=== PATIENT | female | born 1975 | race Caucasian/White ===

== ENCOUNTER 2018-01-22 21:02 | Emergency (ER) | payer MEDICAID ==
[~2018-01-22] VITALS: Ht 162.6 cm; Wt 72.0 kg
[~2018-01-22 21:02] MED LIST: ATOR20TA PO; LEVEMIR SUBCUT; LOSA100T3 PO; NOVOLOG SUBCUT
[2018-01-22] MEDS ORDERED: MORPHINE SULFATE 4 MG/ML CPJ (NOT FOR IM USE) IV STA (22:58)
[2018-01-22] MEDS ORDERED: SODIUM CHLORIDE 0.9% 1,000 ML IV ONE (22:58)
[2018-01-22] MEDS ORDERED: ONDANSETRON HCL 4MG/2ML VIAL IV STA (22:58)
[2018-01-22 23:53] LABS: BASOPHILS % 0.5 % (0.0-2.0); EOSINOPHILS % 2.6 % (0.0-5.0); HEMOGLOBIN. 11.5 g/dL (12.0-16.0); LYMPHOCYTES % 26.5 % (20.0-50.0); MEAN CORPUSCULAR HEMOGLOBIN 26.7 pg (28.0-32.0); MEAN PLATELET VOLUME 7.7 fl (7.4-10.4); MONOCYTES % 8.4 % (2.0-8.0); PLATELET 344 x1000/uL (130-400); RED BLOOD CELL COUNT 4.32 mill/uL (4.2-5.4); RED CELL DISTRIBUTION WIDTH 14.1 % (11.6-14.6)
[2018-01-22 23:53] LABS: CLARITY URINE CLEAR (CLEAR); COLOR URINE YELLOW (YELLOW); KETONES URINE NEGATIVE (NEGATIVE); LEUKOCYTE ESTERASE URINE NEGATIVE (NEGATIVE); NITRITE URINE NEGATIVE (NEGATIVE); OCCULT BLOOD URINE TRACE (NEGATIVE); PH URINE 6.5 (4.5-8.0); PROTEIN URINE 3+ (NEGATIVE); SPECIFIC GRAVITY URINE 1.014 (1.005-1.030); UROBILINOGEN URINE 0.2 E.U./dL (0.2-1.0)
[2018-01-22 23:55] LABS: CHLORIDE 104 mEq/L (98-107)
[2018-01-23] LABS: HCG SCREEN NEGATIVE
[2018-01-23 00:27] LABS: PROTHROMBIN TIME 10.1 sec (9.1-11.1)
[2018-01-23 02:04] VITALS: BP 157/81
== END 2018-01-23 02:08 | disposition home or self-care (01) ==
LOC: ER 22:40
DX: R10.30 Lower abdominal pain, unspecified (principal); R11.0 Nausea; I10 Essential (primary) hypertension; E11.9 Type 2 diabetes mellitus without complications; Z90.49 Acquired absence of other specified parts of digestive tract; Z98.890 Other specified postprocedural states; Z98.51 Tubal ligation status; Z79.899 Other long term (current) drug therapy
CPT/HCPCS: 36415; 74176; 80053; 81003; 83690; 84484; 84703; 85025; 85610; 96374; 96375; 99285; J2270; J2405; J7030

== ENCOUNTER 2018-04-13 22:06 | Inpatient (IN) | payer MEDICAID ==
[~2018-04-13] VITALS: Ht 162.6 cm; Wt 68.0 kg
[2018-04-14] MEDS ORDERED: SODIUM CHLORIDE 0.9% 1000ML BAG (SEPSIS BOLUS) IV ONE (00:15)
[2018-04-14] MEDS ORDERED: VANCOMYCIN 1 G PREMIX 200 ML IV ONE (00:15)
[2018-04-14] MEDS ORDERED: PIPERACILLIN/TAZ 3.375G PREMIX 50 ML IV ONE (00:15)
[2018-04-14] MEDS ORDERED: HYDROCODONE/ACETAMINOPHEN 5/325MG TABLET PO ONE (01:00)
[2018-04-14 01:09] LABS: BASOPHILS % 0.3 % (0.0-2.0); EOSINOPHILS % 1.6 % (0.0-5.0); HEMATOCRIT. 31.7 % (36.0-48.0); HEMOGLOBIN. 10.4 g/dL (12.0-16.0); LYMPHOCYTES % 18.5 % (20.0-50.0); MEAN CORPUSCULAR HEMOGLOBIN 27.1 pg (28.0-32.0); MEAN PLATELET VOLUME 7.4 fl (7.4-10.4); NEUTROPHILS % 71.6 % (40.0-76.0); PLATELET 360 x1000/uL (130-400); RED BLOOD CELL COUNT 3.86 mill/uL (4.2-5.4); RED CELL DISTRIBUTION WIDTH 13.3 % (11.6-14.6)
[2018-04-14 01:17] LABS: CHLORIDE 101 mEq/L (98-107)
[2018-04-14] MEDS ORDERED: INSULIN GLARGINE UD 100 UNITS/ML SYR SUBCUT ONE (02:45)
[2018-04-14] MEDS ORDERED: INSU3INS2 SQ (04:44)
[2018-04-14] MEDS ORDERED: INSLIS SUBCUT (04:44)
[2018-04-14] MEDS ORDERED: METF-416 PO (04:44)
[2018-04-14 04:58] VITALS: BP 143/84
[2018-04-14 05:36] VITALS: BP 143/89
[2018-04-14 08:00] VITALS: BP 139/77
[2018-04-14] MEDS ORDERED: DEXTROSE 50% WATER 50ML SYRINGE IV PRN (08:45)
[2018-04-14] MEDS ORDERED: INFLUENZA VIRUS VACCINE(AFLURIA) 0.5ML SYR IM ONE (10:00)
[2018-04-14] MEDS: VANCOMYCIN 750 MG PREMIX 150 ML IV SCH ×2 (10:55→23:10)
[2018-04-14 12:00] VITALS: BP 141/79
[2018-04-14] MEDS: BLOOD SUGAR DIAGNOSTIC STRIP TEST SCH ×3 (12:30→23:00)
[2018-04-14] MEDS: INSULIN LISPRO 100 UNITS/ML SUBCUT SCH ×3 (13:37→23:29)
[2018-04-14 16:00] VITALS: BP 135/76
[2018-04-14 20:00] VITALS: BP 130/77
[2018-04-15] VITALS: BP 131/70
[2018-04-15 04:00] VITALS: BP 129/74
[2018-04-15 07:10] LABS: BASOPHILS % 0.4 % (0.0-2.0); EOSINOPHILS % 2.1 % (0.0-5.0); HEMOGLOBIN. 10.6 g/dL (12.0-16.0); LYMPHOCYTES % 19.1 % (20.0-50.0); MEAN CORPUSCULAR HEMOGLOBIN 26.7 pg (28.0-32.0); MEAN CORPUSCULAR VOLUME 80.4 fL (81.0-99.0); MEAN PLATELET VOLUME 7.4 fl (7.4-10.4); MONOCYTES % 7.6 % (2.0-8.0); NEUTROPHILS % 70.8 % (40.0-76.0); PLATELET 359 x1000/uL (130-400); RED BLOOD CELL COUNT 3.98 mill/uL (4.2-5.4); RED CELL DISTRIBUTION WIDTH 13.4 % (11.6-14.6)
[2018-04-15] MEDS: BLOOD SUGAR DIAGNOSTIC STRIP TEST SCH ×4 (07:38→21:16)
[2018-04-15 08:00] VITALS: BP 132/72
[2018-04-15 08:05] LABS: CHLORIDE 105 mEq/L (98-107)
[2018-04-15] MEDS: INSULIN LISPRO 100 UNITS/ML SUBCUT SCH ×6 (08:06→21:00)
[2018-04-15] MEDS: VANCOMYCIN 750 MG PREMIX 150 ML IV SCH ×3 (09:28→21:23)
[2018-04-15] MEDS ORDERED: LOSARTAN POTASSIUM 100 MG PO SCH (09:45)
[2018-04-15] MEDS: ENOXAPARIN 40MG/0.4ML SYR SUBCUT SCH (11:03)
[2018-04-15] MEDS: LOSARTAN POTASSIUM 100 MG TABLET PO SCH (11:03)
[2018-04-15 12:00] VITALS: BP 138/77
[2018-04-15] MEDS ORDERED: INSULIN LISPRO 20 UNIT SUBCUT SCH (12:20)
[2018-04-15 16:00] VITALS: BP 138/76
[2018-04-15 20:00] VITALS: BP 122/68
[2018-04-15] MEDS: INSULIN GLARGINE UD 100 UNITS/ML SYR SUBCUT SCH (21:31)
[2018-04-15] MEDS: TRAMADOL 50MG TABLET PO PRN (22:16)
[2018-04-16] VITALS: BP 124/77
[2018-04-16 04:00] VITALS: BP 113/74
[2018-04-16] MEDS: BLOOD SUGAR DIAGNOSTIC STRIP TEST SCH ×4 (07:05→21:48)
[2018-04-16 07:46] LABS: BASOPHILS % 0.3 % (0.0-2.0); EOSINOPHILS % 2.1 % (0.0-5.0); HEMATOCRIT. 33.1 % (36.0-48.0); HEMOGLOBIN. 10.9 g/dL (12.0-16.0); LYMPHOCYTES % 19.4 % (20.0-50.0); MEAN CORPUSCULAR HEMOGLOBIN 26.7 pg (28.0-32.0); MEAN CORPUSCULAR VOLUME 80.9 fL (81.0-99.0); MEAN PLATELET VOLUME 7.4 fl (7.4-10.4); MONOCYTES % 7.1 % (2.0-8.0); NEUTROPHILS % 71.1 % (40.0-76.0); PLATELET 361 x1000/uL (130-400); RED BLOOD CELL COUNT 4.09 mill/uL (4.2-5.4); RED CELL DISTRIBUTION WIDTH 13.3 % (11.6-14.6)
[2018-04-16 07:57] LABS: CHLORIDE 106 mEq/L (98-107)
[2018-04-16 08:00] VITALS: BP 139/83
[2018-04-16] MEDS: LOSARTAN POTASSIUM 100 MG TABLET PO SCH (08:41)
[2018-04-16] MEDS: ENOXAPARIN 40MG/0.4ML SYR SUBCUT SCH (08:41)
[2018-04-16] MEDS: INSULIN LISPRO 100 UNITS/ML SUBCUT SCH ×7 (08:46→21:00)
[2018-04-16] MEDS: VANCOMYCIN 1250MG in DEXTROSE 5% WATER 250ML IV SCH ×2 (10:37→21:48)
[2018-04-16 12:00] VITALS: BP 116/73
[2018-04-16 16:04] VITALS: BP 109/64
[2018-04-16 20:00] VITALS: BP 131/76
[2018-04-16] MEDS: INSULIN GLARGINE UD 100 UNITS/ML SYR SUBCUT SCH (22:02)
[2018-04-17] VITALS: BP 126/69
[2018-04-17 04:00] VITALS: BP 119/69
[2018-04-17] MEDS: BLOOD SUGAR DIAGNOSTIC STRIP TEST SCH ×4 (07:20→21:48)
[2018-04-17 08:00] VITALS: BP 120/72
[2018-04-17] MEDS: LOSARTAN POTASSIUM 100 MG TABLET PO SCH (08:45)
[2018-04-17] MEDS: ENOXAPARIN 40MG/0.4ML SYR SUBCUT SCH (08:45)
[2018-04-17] MEDS: INSULIN LISPRO 100 UNITS/ML SUBCUT SCH ×7 (08:48→21:00)
[2018-04-17] MEDS: VANCOMYCIN 1250MG in DEXTROSE 5% WATER 250ML IV SCH (09:46)
[2018-04-17 12:01] VITALS: BP 139/76
[2018-04-17 16:00] VITALS: BP 132/75
[2018-04-17 20:00] VITALS: BP 150/85
[2018-04-17] MEDS ORDERED: CEFTRIAXONE 2 G in DEXTROSE 5% WATER 50 ML IV SCH (21:00)
[2018-04-17] MEDS: TRAMADOL 50MG TABLET PO PRN (21:37)
[2018-04-17] MEDS: INSULIN GLARGINE UD 100 UNITS/ML SYR SUBCUT SCH (22:04)
[2018-04-18] VITALS: BP 136/76
[2018-04-18 04:00] VITALS: BP_SYST 128; BP_SYST 142; BP_DIAS 76; BP_DIAS 77
[2018-04-18] MEDS: BLOOD SUGAR DIAGNOSTIC STRIP TEST SCH ×3 (07:46→17:38)
[2018-04-18 08:00] VITALS: BP 126/75
[2018-04-18] MEDS: INSULIN LISPRO 100 UNITS/ML SUBCUT SCH ×6 (08:37→18:19)
[2018-04-18] MEDS: LOSARTAN POTASSIUM 100 MG TABLET PO SCH (08:38)
[2018-04-18] MEDS: ENOXAPARIN 40MG/0.4ML SYR SUBCUT SCH (08:38)
[2018-04-18 12:00] VITALS: BP 110/76
[2018-04-18 16:00] VITALS: BP 134/82
[2018-04-18 18:40] VITALS: BP 125/86
== END 2018-04-18 20:30 | disposition home health service (06) | DRG 710 ==
LOC: ER 22:06 → 6EST 04-14 00:23 → EDBEDREQ 04-14 00:26 → EDBEDREQTM 04-14 00:26 → EDBEDREQSVC 04-14 00:26 → ENRESERV 04-14 02:07
PROVIDERS: ADMIT Internal Medicine; ATTEND Internal Medicine
PROC: 02HV33Z Insertion of Infusion Device into Superior Vena Cava, Percutaneous Approach (ICD-10-PCS; principal; 2018-04-17)
PROC: 0QDR0ZZ Extraction of Left Toe Phalanx, Open Approach (ICD-10-PCS; 2018-04-17)
PROC: B548ZZA Ultrasonography of Superior Vena Cava, Guidance (ICD-10-PCS; 2018-04-17)
PROC: B5181ZA Fluoroscopy of Superior Vena Cava using Low Osmolar Contrast, Guidance (ICD-10-PCS; 2018-04-17)
PROC: 0JBR0ZZ Excision of Left Foot Subcutaneous Tissue and Fascia, Open Approach (ICD-10-PCS; 2018-04-17)
DX: A41.9 Sepsis, unspecified organism (principal); E10.51 Type 1 diabetes mellitus with diabetic peripheral angiopathy without gangrene; E10.42 Type 1 diabetes mellitus with diabetic polyneuropathy; E44.0 Moderate protein-calorie malnutrition; E10.621 Type 1 diabetes mellitus with foot ulcer; E10.65 Type 1 diabetes mellitus with hyperglycemia; I10 Essential (primary) hypertension; E78.5 Hyperlipidemia, unspecified; L97.529 Non-pressure chronic ulcer of other part of left foot with unspecified severity; L02.612 Cutaneous abscess of left foot; E10.69 Type 1 diabetes mellitus with other specified complication; M86.8X7 Other osteomyelitis, ankle and foot; Z90.49 Acquired absence of other specified parts of digestive tract; Z98.891 History of uterine scar from previous surgery; Z98.51 Tubal ligation status; Z79.899 Other long term (current) drug therapy; Z79.82 Long term (current) use of aspirin; Z91.19 Patient's noncompliance with other medical treatment and regimen; Z68.25 Body mass index [BMI] 25.0-25.9, adult; Z79.84 Long term (current) use of oral hypoglycemic drugs; Z79.4 Long term (current) use of insulin
CPT/HCPCS: 36415; 36569; 71045; 73630; 73721; 76937; 77001; 80048; 80202; 82962; 83036; 83605; 85651; 86140; 87070; 87077; 90686; 96365; 96366; 96367; 97022; 97162; 99285; C1725; J0696; J1650; J1815; J2543; J3370; J7030; J7040; J7060

== ENCOUNTER 2018-07-20 08:20 | Emergency (ER) | payer MEDICAID ==
[~2018-07-20] VITALS: Ht 162.6 cm; Wt 68.5 kg
[~2018-07-20 08:20] MED LIST changes: -ATOR20TA PO; +INSLIS SUBCUT; -LEVEMIR SUBCUT; +METF-416 PO; -NOVOLOG SUBCUT
[2018-07-20] MEDS ORDERED: AMLO5TAB4 MT (08:37)
[2018-07-20] MEDS ORDERED: LYR25 MT (08:37)
[2018-07-20] MEDS ORDERED: ONDANSETRON HCL 4MG/2ML INJ IV ONE (13:45)
[2018-07-20] MEDS ORDERED: MORPHINE SULFATE 4 MG/ML CPJ (NOT FOR IM USE) IV ONE (13:45)
[2018-07-20 14:52] LABS: BASOPHILS % 0.3 % (0.0-2.0); EOSINOPHILS % 0.5 % (0.0-5.0); HEMATOCRIT. 35.2 % (36.0-48.0); HEMOGLOBIN. 11.7 g/dL (12.0-16.0); LYMPHOCYTES % 15.2 % (20.0-50.0); MEAN CORPUSCULAR HEMOGLOBIN 26.7 pg (28.0-32.0); MEAN CORPUSCULAR VOLUME 80.2 fL (81.0-99.0); MEAN PLATELET VOLUME 8.1 fl (7.4-10.4); MONOCYTES % 3.8 % (2.0-8.0); NEUTROPHILS % 80.2 % (40.0-76.0); PLATELET 376 x1000/uL (130-400); RED BLOOD CELL COUNT 4.38 mill/uL (4.2-5.4); RED CELL DISTRIBUTION WIDTH 13.9 % (11.6-14.6)
[2018-07-20 14:58] LABS: CHLORIDE 106 mEq/L (98-107)
[2018-07-20 15:04] LABS: HCG SCREEN NEGATIVE
[2018-07-20 18:33] LABS: CLARITY URINE CLOUDY (CLEAR); COLOR URINE YELLOW (YELLOW); KETONES URINE NEGATIVE (NEGATIVE); LEUKOCYTE ESTERASE URINE TRACE (NEGATIVE); NITRITE URINE NEGATIVE (NEGATIVE); OCCULT BLOOD URINE 3+ (NEGATIVE); PROTEIN URINE 3+ (NEGATIVE); SPECIFIC GRAVITY URINE 1.017 (1.005-1.030); UROBILINOGEN URINE 0.2 E.U./dL (0.2-1.0)
[2018-07-20 19:00] VITALS: BP 141/77
== END 2018-07-20 19:05 | disposition home or self-care (01) ==
LOC: ER 08:45
DX: R10.84 Generalized abdominal pain (principal); R19.7 Diarrhea, unspecified; E11.9 Type 2 diabetes mellitus without complications; I10 Essential (primary) hypertension; Z90.49 Acquired absence of other specified parts of digestive tract; Z98.890 Other specified postprocedural states; Z95.5 Presence of coronary angioplasty implant and graft; Z53.31 Laparoscopic surgical procedure converted to open procedure; Z79.4 Long term (current) use of insulin; Z79.899 Other long term (current) drug therapy
CPT/HCPCS: 36415; 74176; 80053; 81003; 81025; 83690; 84703; 85025; 96374; 96375; 99284; J2270; J2405

== ENCOUNTER 2018-08-28 05:50 | Inpatient (IN) | payer MEDICAID ==
[~2018-08-28] VITALS: Ht 162.6 cm; Wt 72.6 kg
[~2018-08-28 05:50] MED LIST changes: +AMLO5TAB4 MT; +LYR25 MT
[2018-08-28] MEDS ORDERED: IBUPROFEN 600MG TABLET PO ONE (08:30)
[2018-08-28 08:37] LABS: BASOPHILS % 0.4 % (0.0-2.0); EOSINOPHILS % 2.3 % (0.0-5.0); HEMATOCRIT. 32.9 % (36.0-48.0); HEMOGLOBIN. 11.2 g/dL (12.0-16.0); MEAN CORPUSCULAR HEMOGLOBIN 27.4 pg (28.0-32.0); MEAN CORPUSCULAR VOLUME 80.5 fL (81.0-99.0); MEAN PLATELET VOLUME 7.5 fl (7.4-10.4); MONOCYTES % 5.4 % (2.0-8.0); NEUTROPHILS % 69.9 % (40.0-76.0); PLATELET 343 x1000/uL (130-400); RED BLOOD CELL COUNT 4.08 mill/uL (4.2-5.4); RED CELL DISTRIBUTION WIDTH 13.4 % (11.6-14.6)
[2018-08-28 08:43] LABS: CHLORIDE 107 mEq/L (98-107)
[2018-08-28] MEDS ORDERED: AMPICILLIN SOD/SULBACTAM NA 1.5 G in SODIUM CHLORIDE 0.9% 50 ML IV SCH (09:00)
[2018-08-28 14:30] VITALS: BP 136/75
[2018-08-28] MEDS ORDERED: DEXTROSE 50% WATER 50ML SYRINGE IV PRN (17:15)
[2018-08-28] MEDS: BLOOD SUGAR DIAGNOSTIC STRIP TEST SCH ×2 (17:40→22:30)
[2018-08-28] MEDS ORDERED: LOSARTAN POTASSIUM 100 MG PO SCH (17:45)
[2018-08-28] MEDS ORDERED: MEDICATION NOT ON FORMULARY EA (Amlodipine Besylate (Norvasc) 1 TAB) MT SCH (17:45)
[2018-08-28] MEDS: INSULIN LISPRO 100 UNITS/ML SUBCUT SCH ×3 (17:50→22:00)
[2018-08-28] MEDS: LOSARTAN POTASSIUM 100 MG TABLET PO SCH (18:55)
[2018-08-28] MEDS: AMLODIPINE 5MG TABLET PO SCH (18:55)
[2018-08-28 20:00] VITALS: BP 142/74
[2018-08-28] MEDS ORDERED: VANCOMYCIN 1500MG in DEXTROSE 5% WATER 250ML IV NR (20:00)
[2018-08-28] MEDS ORDERED: ENOXAPARIN 40MG/0.4ML SYR SUBCUT ONE (20:15)
[2018-08-28] MEDS: CEFEPIME 1,000 MG in SODIUM CHLORIDE 0.9% 50 ML IV SCH (22:19)
[2018-08-28] MEDS: SODIUM CHLORIDE 0.9% 1,000 ML IV SCH (22:20)
[2018-08-28] MEDS: ENOXAPARIN 40MG/0.4ML SYR SUBCUT SCH (22:22)
[2018-08-29] VITALS: BP 112/67
[2018-08-29 04:00] VITALS: BP 115/68
[2018-08-29] MEDS: VANCOMYCIN 1 G PREMIX 200 ML IV SCH ×2 (06:12→17:49)
[2018-08-29] MEDS ORDERED: INSULIN LISPRO 20 UNIT SUBCUT SCH (07:20)
[2018-08-29] MEDS: BLOOD SUGAR DIAGNOSTIC STRIP TEST SCH ×4 (07:20→21:00)
[2018-08-29] MEDS: INSULIN LISPRO 100 UNITS/ML SUBCUT SCH ×7 (07:20→21:30)
[2018-08-29 08:00] VITALS: BP 132/78
[2018-08-29] MEDS: CEFEPIME 1,000 MG in SODIUM CHLORIDE 0.9% 50 ML IV SCH ×2 (08:00→21:29)
[2018-08-29] MEDS ORDERED: SODIUM BICARBONATE 4% (2.4MEQ) 5ML VIAL IV ONE (08:07)
[2018-08-29] MEDS ORDERED: LIDOCAINE HCL 1% 20ML VIAL (Pyxis) INJ ONE (08:07)
[2018-08-29] MEDS: LOSARTAN POTASSIUM 100 MG TABLET PO SCH (08:57)
[2018-08-29] MEDS: AMLODIPINE 5MG TABLET PO SCH (08:57)
[2018-08-29] MEDS: SODIUM CHLORIDE 0.9% 1,000 ML IV SCH ×2 (08:58→21:36)
[2018-08-29] MEDS ORDERED: CEFEPIME HCL 1000MG/VIAL INJ IM ONE (09:00)
[2018-08-29 12:00] VITALS: BP 142/80
[2018-08-29] MEDS: GABAPENTIN 300MG CAPSULE PO SCH ×2 (14:16→21:35)
[2018-08-29 16:00] VITALS: BP 152/85
[2018-08-29 20:00] VITALS: BP 150/92
[2018-08-29] MEDS: ENOXAPARIN 40MG/0.4ML SYR SUBCUT SCH (21:29)
[2018-08-30] VITALS: BP 126/69
[2018-08-30 04:00] VITALS: BP 108/64
[2018-08-30] MEDS: BLOOD SUGAR DIAGNOSTIC STRIP TEST SCH ×2 (05:56→12:20)
[2018-08-30 06:33] LABS: CHLORIDE 108 mEq/L (98-107)
[2018-08-30] MEDS: GABAPENTIN 300MG CAPSULE PO SCH ×2 (06:54→13:46)
[2018-08-30] MEDS: VANCOMYCIN 1 G PREMIX 200 ML IV SCH (07:01)
[2018-08-30 08:00] VITALS: BP 144/84
[2018-08-30] MEDS: INSULIN LISPRO 100 UNITS/ML SUBCUT SCH ×4 (08:37→13:44)
[2018-08-30] MEDS: CEFEPIME 1,000 MG in SODIUM CHLORIDE 0.9% 50 ML IV SCH (08:39)
[2018-08-30] MEDS: AMLODIPINE 5MG TABLET PO SCH (08:40)
[2018-08-30] MEDS: LOSARTAN POTASSIUM 100 MG TABLET PO SCH (08:40)
[2018-08-30 10:04] VITALS: BP 144/84
[2018-08-30 12:00] VITALS: BP 145/84
[2018-08-30 16:00] VITALS: BP 125/79
== END 2018-08-30 15:17 | disposition home health service (06) | DRG 344 ==
LOC: ER 05:50 → 6EST 08:55 → EDBEDREQ 09:06 → EDBEDREQTM 09:06 → ENRESERV 09:55
PROVIDERS: ADMIT Internal Medicine; ATTEND Internal Medicine
PROC: 02HV33Z Insertion of Infusion Device into Superior Vena Cava, Percutaneous Approach (ICD-10-PCS; principal; 2018-08-29)
PROC: B5181ZA Fluoroscopy of Superior Vena Cava using Low Osmolar Contrast, Guidance (ICD-10-PCS; 2018-08-29)
PROC: B548ZZA Ultrasonography of Superior Vena Cava, Guidance (ICD-10-PCS; 2018-08-29)
DX: E11.69 Type 2 diabetes mellitus with other specified complication (principal); M86.8X7 Other osteomyelitis, ankle and foot; E11.51 Type 2 diabetes mellitus with diabetic peripheral angiopathy without gangrene; E11.42 Type 2 diabetes mellitus with diabetic polyneuropathy; E11.621 Type 2 diabetes mellitus with foot ulcer; E46 Unspecified protein-calorie malnutrition; E78.5 Hyperlipidemia, unspecified; L03.032 Cellulitis of left toe; E11.65 Type 2 diabetes mellitus with hyperglycemia; I10 Essential (primary) hypertension; Z98.51 Tubal ligation status; Z98.891 History of uterine scar from previous surgery; Z90.49 Acquired absence of other specified parts of digestive tract; Z79.4 Long term (current) use of insulin; Z83.3 Family history of diabetes mellitus; Z82.49 Family history of ischemic heart disease and other diseases of the circulatory system; Z68.27 Body mass index [BMI] 27.0-27.9, adult
CPT/HCPCS: 36415; 36569; 36573; 73660; 73721; 80048; 82962; 87070; 87077; 87186; 93970; 96365; 99285; C1725; J0295; J0692; J1650; J1815; J3370; J3490; J7030; J7040; J7050; J7060

== ENCOUNTER 2019-04-19 21:04 | Emergency (ER) | payer MEDICAID, OTHER ==
[~2019-04-19] VITALS: Ht 165.1 cm; Wt 73.0 kg
[2019-04-19 22:49] LABS: CLARITY URINE CLEAR (CLEAR); COLOR URINE YELLOW (YELLOW); KETONES URINE NEGATIVE (NEGATIVE); LEUKOCYTE ESTERASE URINE NEGATIVE (NEGATIVE); NITRITE URINE NEGATIVE (NEGATIVE); OCCULT BLOOD URINE TRACE (NEGATIVE); PROTEIN URINE 2+ (NEGATIVE); SPECIFIC GRAVITY URINE 1.016 (1.005-1.030); UROBILINOGEN URINE 0.2 E.U./dL (0.2-1.0)
[2019-04-19] MEDS ORDERED: FAMOTIDINE 20MG/2ML VIAL IV STA (23:09)
[2019-04-19] MEDS ORDERED: MAGNESIUM/ALUMINUM HYDROXIDE/SIMETHICONE 30ML UDC PO STA (23:09)
[2019-04-19] MEDS ORDERED: ACETAMINOPHEN 500MG TABLET PO NR (23:15)
[2019-04-19 23:50] LABS: BASOPHILS % 0.3 % (0.0-2.0); EOSINOPHILS % 1.4 % (0.0-5.0); HEMATOCRIT. 33.9 % (36.0-48.0); HEMOGLOBIN. 11.5 g/dL (12.0-16.0); LYMPHOCYTES % 22.6 % (20.0-50.0); MEAN CORPUSCULAR HEMOGLOBIN 26.9 pg (28.0-32.0); MEAN CORPUSCULAR VOLUME 79.2 fL (81.0-99.0); MEAN PLATELET VOLUME 7.7 fl (7.4-10.4); NEUTROPHILS % 69.7 % (40.0-76.0); PLATELET 339 x1000/uL (130-400); RED BLOOD CELL COUNT 4.29 mill/uL (4.2-5.4); RED CELL DISTRIBUTION WIDTH 14.1 % (11.6-14.6)
[2019-04-19 23:59] LABS: PROTHROMBIN TIME 10.3 sec (9.6-11.0)
[2019-04-20] LABS: CHLORIDE 107 mEq/L (98-107)
[2019-04-20 01:50] VITALS: BP 121/81
== END 2019-04-20 01:52 | disposition home or self-care (01) ==
LOC: ER 21:04
DX: R10.13 Epigastric pain (principal)
CPT/HCPCS: 36415; 80053; 81003; 81025; 83690; 85025; 85610; 96374; 99283; J3490

== ENCOUNTER 2021-10-01 16:28 | Inpatient (IN) | payer MEDICARE, MEDICAID ==
[~2021-10-01] VITALS: Ht 165.1 cm; Wt 77.6 kg
[~2021-10-01 16:28] MED LIST changes: +ATOR20TA65 MT; +FERR325T6 MT; -INSLIS SUBCUT; +INSU100I28 SQ; -LOSA100T3 PO; -METF-416 PO
[2021-10-01 17:52] LABS: BASOPHILS % 0.4 % (0.0-2.0); EOSINOPHILS % 1.7 % (0.0-5.0); HEMATOCRIT. 30.3 % (36.0-48.0); HEMOGLOBIN. 10.1 g/dL (12.0-16.0); LYMPHOCYTES % 15.9 % (20.0-50.0); MEAN CORPUSCULAR HEMOGLOBIN 25.9 pg (28.0-32.0); MEAN CORPUSCULAR VOLUME 77.5 fL (81.0-99.0); MEAN PLATELET VOLUME 7.8 fl (7.4-10.4); MONOCYTES % 7.3 % (2.0-8.0); NEUTROPHILS % 74.7 % (40.0-76.0); PLATELET 293 x1000/uL (130-400); RED BLOOD CELL COUNT 3.91 mill/uL (4.2-5.4)
[2021-10-01 17:59] LABS: CHLORIDE 108 mEq/L (98-107)
[2021-10-01] MEDS ORDERED: FUROSEMIDE 40MG/4ML VIAL IVP NR (20:00)
[2021-10-02 08:00] VITALS: BP 154/74
[2021-10-02] MEDS ORDERED: FUROSEMIDE 40MG/4ML VIAL IVP SCH (09:00)
[2021-10-02] MEDS ORDERED: DEXTROSE 50% WATER 50ML SYRINGE IV PRN (10:45)
[2021-10-02 12:00] VITALS: BP 162/85
[2021-10-02] MEDS: BLOOD SUGAR DIAGNOSTIC STRIP TEST SCH ×3 (12:10→21:50)
[2021-10-02] MEDS: INSULIN LISPRO 100 UNITS/ML SUBCUT SCH ×3 (12:10→21:53)
[2021-10-02] MEDS ORDERED: PREG50CA63 PO (12:55)
[2021-10-02] MEDS ORDERED: AMLO10TA80 MT (12:58)
[2021-10-02] MEDS ORDERED: ONDANSETRON HCL 4MG/2ML INJ IV PRN (13:15)
[2021-10-02] MEDS ORDERED: DOCUSATE SODIUM 100MG CAPSULE PO PRN (13:15)
[2021-10-02] MEDS ORDERED: IPRATROPIUM/ALBUTEROL 0.5-3(2.5)MG/3ML NEB HHN PRN (13:15)
[2021-10-02] MEDS ORDERED: HYDROCODONE/ACETAMINOPHEN 5/325MG TABLET PO PRN (13:15)
[2021-10-02] MEDS ORDERED: CLONIDINE 0.1MG TABLET PO PRN (13:15)
[2021-10-02] MEDS ORDERED: ACETAMINOPHEN 325MG TABLET PO PRN ×2 (13:15)
[2021-10-02] MEDS ORDERED: LORAZEPAM 0.5MG TABLET PO PRN (13:15)
[2021-10-02] MEDS ORDERED: NALOXONE HCL 0.4MG/ML VIAL IV PRN (13:15)
[2021-10-02] MEDS: FUROSEMIDE 40MG/4ML VIAL IVP SCH ×2 (14:34→21:49)
[2021-10-02] MEDS: INSULIN GLARGINE 100 UNITS/ML SUBCUT SCH (14:35)
[2021-10-02] MEDS: CARVEDILOL 3.125 MG TABLET PO SCH ×2 (14:35→21:50)
[2021-10-02 14:54] VITALS: BP 154/74
[2021-10-02 16:00] VITALS: BP 158/72
[2021-10-02 20:00] VITALS: BP 148/72
[2021-10-02] MEDS ORDERED: ATORVASTATIN CALCIUM 20MG TABLET PO SCH (21:00)
[2021-10-02] MEDS ORDERED: PREGABALIN 50 MG CAPSULE PO SCH (21:00)
[2021-10-03] VITALS: BP 128/68
[2021-10-03] MEDS: BLOOD SUGAR DIAGNOSTIC STRIP TEST SCH ×3 (06:40→16:31)
[2021-10-03] MEDS: INSULIN LISPRO 100 UNITS/ML SUBCUT SCH ×3 (07:10→16:32)
[2021-10-03 07:39] LABS: BASOPHILS % 0.5 % (0.0-2.0); EOSINOPHILS % 3.5 % (0.0-5.0); HEMATOCRIT. 33.3 % (36.0-48.0); HEMOGLOBIN. 11.1 g/dL (12.0-16.0); LYMPHOCYTES % 23.6 % (20.0-50.0); MEAN CORPUSCULAR HEMOGLOBIN 25.9 pg (28.0-32.0); MEAN CORPUSCULAR VOLUME 77.9 fL (81.0-99.0); MEAN PLATELET VOLUME 8.1 fl (7.4-10.4); MONOCYTES % 8.7 % (2.0-8.0); NEUTROPHILS % 63.7 % (40.0-76.0); PLATELET 328 x1000/uL (130-400); RED BLOOD CELL COUNT 4.28 mill/uL (4.2-5.4); RED CELL DISTRIBUTION WIDTH 14.4 % (11.6-14.6)
[2021-10-03 08:00] VITALS: BP 155/82
[2021-10-03] MEDS: FUROSEMIDE 40MG/4ML VIAL IVP SCH (08:25)
[2021-10-03] MEDS: CARVEDILOL 3.125 MG TABLET PO SCH (08:26)
[2021-10-03] MEDS: INSULIN GLARGINE 100 UNITS/ML SUBCUT SCH (08:36)
[2021-10-03 12:00] VITALS: BP 154/80
[2021-10-03 12:39] VITALS: BP 175/66
[2021-10-03] MEDS ORDERED: COR3 PO ×3 (14:25→14:26)
[2021-10-03] MEDS ORDERED: FURO40TA5 MT ×3 (14:25→14:26)
[2021-10-03 16:00] VITALS: BP 148/78
[2021-10-03 16:17] VITALS: BP 141/75
[2021-10-04] MEDS ORDERED: FUROSEMIDE 40MG/4ML VIAL IVP SCH (09:00)
== END 2021-10-03 17:19 | disposition home or self-care (01) | DRG 291 ==
LOC: ER 16:28 → MICUSO 21:50 → 7EST 10-02 05:45
PROVIDERS: ADMIT Internal Medicine; ATTEND Internal Medicine
DX: I13.0 Hypertensive heart and chronic kidney disease with heart failure and stage 1 through stage 4 chronic kidney disease, or unspecified chronic kidney disease (principal); J96.00 Acute respiratory failure, unspecified whether with hypoxia or hypercapnia; I50.21 Acute systolic (congestive) heart failure; N17.9 Acute kidney failure, unspecified; N04.9 Nephrotic syndrome with unspecified morphologic changes; I31.3 Pericardial effusion (noninflammatory); N18.9 Chronic kidney disease, unspecified; E88.09 Other disorders of plasma-protein metabolism, not elsewhere classified; E11.319 Type 2 diabetes mellitus with unspecified diabetic retinopathy without macular edema; Z79.4 Long term (current) use of insulin; E11.65 Type 2 diabetes mellitus with hyperglycemia; E78.5 Hyperlipidemia, unspecified; E87.5 Hyperkalemia; D50.9 Iron deficiency anemia, unspecified; E11.51 Type 2 diabetes mellitus with diabetic peripheral angiopathy without gangrene; E11.22 Type 2 diabetes mellitus with diabetic chronic kidney disease; E11.40 Type 2 diabetes mellitus with diabetic neuropathy, unspecified; I34.0 Nonrheumatic mitral (valve) insufficiency; T46.1X5A Adverse effect of calcium-channel blockers, initial encounter; R60.9 Edema, unspecified; E78.1 Pure hyperglyceridemia; D72.829 Elevated white blood cell count, unspecified; Z86.16 Personal history of COVID-19; Z87.441 Personal history of nephrotic syndrome; Z86.19 Personal history of other infectious and parasitic diseases; Z79.899 Other long term (current) drug therapy; Z90.49 Acquired absence of other specified parts of digestive tract; Z98.51 Tubal ligation status; Z98.891 History of uterine scar from previous surgery; Y92.89 Other specified places as the place of occurrence of the external cause
CPT/HCPCS: 36415; 71045; 76770; 80048; 80053; 80061; 82962; 83036; 83735; 83880; 84484; 85025; 93005; 93306; 99285; J1815; J1940

== ENCOUNTER 2022-02-27 16:54 | Emergency (ER) | payer MEDICARE, MEDICAID ==
[~2022-02-27] VITALS: Ht 162.6 cm; Wt 75.0 kg
[~2022-02-27 16:54] MED LIST changes: -AMLO5TAB4 MT; +COR3 PO; +FURO40TA5 MT; -LYR25 MT; +PREG50CA63 PO
[2022-02-27 16:58] VITALS: BP 168/90
== END 2022-02-27 22:44 | disposition left against medical advice (07) ==
LOC: ER 16:54
DX: Z53.21 Procedure and treatment not carried out due to patient leaving prior to being seen by health care provider (principal)

== ENCOUNTER 2022-03-29 20:39 | Inpatient (IN) | payer MEDICARE, MEDICAID ==
[~2022-03-29] VITALS: Ht 162.6 cm; Wt 75.3 kg
[2022-03-29 21:00] VITALS: BP_SYST 130; BP_SYST 132; BP_DIAS 85; BP_DIAS 90
[2022-03-29 21:30] VITALS: BP 161/75
[2022-03-29 22:00] VITALS: BP_SYST 130; BP_SYST 132; BP_DIAS 85; BP_DIAS 90
[2022-03-29] MEDS ORDERED: LOSA50TA41 MT (22:46)
[2022-03-30] VITALS (7 sets, daily range): BP systolic 144–188; BP diastolic 70–89
[2022-03-30] MEDS ORDERED: HYDROCODONE/ACETAMINOPHEN 5/325MG TABLET PO PRN (09:15)
[2022-03-30] MEDS ORDERED: DOCUSATE SODIUM 100MG CAPSULE PO PRN (09:15)
[2022-03-30] MEDS ORDERED: NALOXONE HCL 0.4MG/ML VIAL IV PRN (09:15)
[2022-03-30] MEDS ORDERED: ACETAMINOPHEN 325MG TABLET PO PRN ×2 (09:15)
[2022-03-30] MEDS ORDERED: LORAZEPAM 0.5MG TABLET PO PRN (09:15)
[2022-03-30] MEDS ORDERED: IPRATROPIUM/ALBUTEROL 0.5-3(2.5)MG/3ML NEB HHN PRN (09:15)
[2022-03-30] MEDS ORDERED: ONDANSETRON HCL 4MG/2ML INJ IV PRN (09:15)
[2022-03-30] MEDS ORDERED: DEXTROSE 50% WATER 50ML SYRINGE IV PRN (14:00)
[2022-03-30] MEDS: CLONIDINE 0.1MG TABLET PO PRN (14:14)
[2022-03-30] MEDS: FUROSEMIDE 40MG TABLET PO SCH (14:14)
[2022-03-30] MEDS: INSULIN GLARGINE 100 UNITS/ML SUBCUT SCH (14:20)
[2022-03-30 15:31] LABS: BASOPHILS % 0.5 % (0.0-2.0); EOSINOPHILS % 2.6 % (0.0-5.0); HEMATOCRIT. 30.7 % (36.0-48.0); HEMOGLOBIN. 10.1 g/dL (12.0-16.0); LYMPHOCYTES % 23.6 % (20.0-50.0); MEAN CORPUSCULAR HEMOGLOBIN 26.1 pg (28.0-32.0); MEAN CORPUSCULAR VOLUME 79.4 fL (81.0-99.0); MEAN PLATELET VOLUME 8.2 fl (7.4-10.4); MONOCYTES % 7.2 % (2.0-8.0); NEUTROPHILS % 66.1 % (40.0-76.0); PLATELET 322 x1000/uL (130-400); RED BLOOD CELL COUNT 3.86 mill/uL (4.2-5.4)
[2022-03-30 15:50] LABS: CHLORIDE 110 mEq/L (98-107)
[2022-03-30] MEDS: BLOOD SUGAR DIAGNOSTIC STRIP TEST SCH ×2 (17:20→20:44)
[2022-03-30] MEDS: INSULIN LISPRO 100 UNITS/ML SUBCUT SCH ×2 (17:50→21:05)
[2022-03-30] MEDS: ATORVASTATIN CALCIUM 20MG TABLET PO SCH (20:21)
[2022-03-30] MEDS: CARVEDILOL 3.125 MG TABLET PO SCH (20:22)
[2022-03-30] MEDS: FERROUS SULFATE 325MG TABLET PO SCH (20:22)
[2022-03-30] MEDS: PREGABALIN 50 MG CAPSULE PO SCH (20:22)
[2022-03-31 04:00] VITALS: BP 139/63
[2022-03-31] MEDS: BLOOD SUGAR DIAGNOSTIC STRIP TEST SCH ×4 (07:20→21:00)
[2022-03-31] MEDS: FERROUS SULFATE 325MG TABLET PO SCH ×3 (07:50→17:50)
[2022-03-31] MEDS: INSULIN LISPRO 100 UNITS/ML SUBCUT SCH ×4 (07:50→21:59)
[2022-03-31 08:00] VITALS: BP 143/73
[2022-03-31] MEDS: FUROSEMIDE 40MG TABLET PO SCH (08:26)
[2022-03-31] MEDS: INSULIN GLARGINE 100 UNITS/ML SUBCUT SCH (08:27)
[2022-03-31] MEDS: CARVEDILOL 3.125 MG TABLET PO SCH ×2 (09:00→21:59)
[2022-03-31 12:00] VITALS: BP 159/79
[2022-03-31 12:28] LABS: BASOPHILS % 0.6 % (0.0-2.0); EOSINOPHILS % 1.9 % (0.0-5.0); HEMATOCRIT. 31.6 % (36.0-48.0); HEMOGLOBIN. 10.4 g/dL (12.0-16.0); LYMPHOCYTES % 19.7 % (20.0-50.0); MEAN CORPUSCULAR HEMOGLOBIN 26.3 pg (28.0-32.0); MEAN CORPUSCULAR VOLUME 79.5 fL (81.0-99.0); MEAN PLATELET VOLUME 8.1 fl (7.4-10.4); MONOCYTES % 6.8 % (2.0-8.0); PLATELET 341 x1000/uL (130-400); RED BLOOD CELL COUNT 3.98 mill/uL (4.2-5.4); RED CELL DISTRIBUTION WIDTH 14.5 % (11.6-14.6)
[2022-03-31 12:58] LABS: PHOSPHORUS 5.2 mg/dL (2.5-4.9)
[2022-03-31] MEDS: DEXT 5%/0.9% NACL 1,000 ML IV SCH (13:43)
[2022-03-31] MEDS ORDERED: BUPIVACAINE HCL/PF 0.5% (5MG/ML) 10ML ONE (14:54)
[2022-03-31] MEDS ORDERED: GENTAMICIN SULF 40MG/ML 2ML VIAL ONE (14:54)
[2022-03-31] MEDS ORDERED: LIDOCAINE HCL 1% 10 MG/ML 10ML VIAL ONE (14:54)
[2022-03-31] MEDS ORDERED: POLYMYXIN B SULFATE 500000 UNITS/VIAL ONE (14:54)
[2022-03-31] MEDS ORDERED: VANCOMYCIN HCL 1 GM/VIAL ONE (14:54)
[2022-03-31] MEDS ORDERED: FENTANYL CITRATE/PF 50MCG/ML 2ML VIAL ONE (14:55)
[2022-03-31] MEDS ORDERED: PROPOFOL 200MG/20ML VIAL IV ONE (14:55)
[2022-03-31] MEDS ORDERED: LIDOCAINE HCL 1% 50ML VIAL (10MG/ML) ONE (14:55)
[2022-03-31] MEDS ORDERED: MIDAZOLAM HCL 2 MG/2 ML VIAL ONE (14:55)
[2022-03-31] MEDS ORDERED: PIPERACILLIN/TAZOBACTAM 3.375 G in DEXTROSE 5% WATER 50 ML IV NR (15:30)
[2022-03-31] MEDS ORDERED: PIPERACILLIN/TAZOBACTAM 3.375GM/50ML PREMIX IV ONE (15:30)
[2022-03-31] MEDS ORDERED: LABETALOL 5MG/ML SYR 20 MG/4 ML SYRINGE IV PRN (15:45)
[2022-03-31] MEDS ORDERED: ONDANSETRON HCL 4MG/2ML INJ IV PRN (15:45)
[2022-03-31] MEDS ORDERED: HYDROMORPHONE HCL/PF 2MG/ML CPJ IV PRN (15:45)
[2022-03-31] MEDS ORDERED: MEPERIDINE HCL/PF 25MG/ML CPJ IV PRN (15:45)
[2022-03-31] MEDS: PREGABALIN 50 MG CAPSULE PO SCH (21:59)
[2022-03-31] MEDS: ATORVASTATIN CALCIUM 20MG TABLET PO SCH (21:59)
[2022-04-01] VITALS: BP 157/75
[2022-04-01 04:00] VITALS: BP 152/76
[2022-04-01] MEDS: DEXT 5%/0.9% NACL 1,000 ML IV SCH (06:00)
[2022-04-01] MEDS: BLOOD SUGAR DIAGNOSTIC STRIP TEST SCH ×4 (07:36→21:09)
[2022-04-01] MEDS: INSULIN LISPRO 100 UNITS/ML SUBCUT SCH ×4 (07:37→21:09)
[2022-04-01 08:00] VITALS: BP 146/73
[2022-04-01] MEDS ORDERED: LIDOCAINE HCL 1% 10 MG/ML 10ML VIAL ONE (08:34)
[2022-04-01] MEDS: INSULIN GLARGINE 100 UNITS/ML SUBCUT SCH (10:00)
[2022-04-01] MEDS: FERROUS SULFATE 325MG TABLET PO SCH ×3 (10:21→18:09)
[2022-04-01] MEDS: CARVEDILOL 3.125 MG TABLET PO SCH ×2 (10:21→21:01)
[2022-04-01] MEDS: FUROSEMIDE 40MG TABLET PO SCH (10:21)
[2022-04-01] MEDS: PIPERACILLIN/TAZOBACTAM 3.375 G in DEXTROSE 5% WATER 50 ML IV SCH ×2 (10:31→20:59)
[2022-04-01 12:00] VITALS: BP 161/77
[2022-04-01] MEDS: CLONIDINE 0.1MG TABLET PO PRN ×2 (13:34→21:00)
[2022-04-01] MEDS ORDERED: VANCOMYCIN 1G PREMIX 200 ML IV NR (18:30)
[2022-04-01 20:00] VITALS: BP 198/93
[2022-04-01] MEDS: ATORVASTATIN CALCIUM 20MG TABLET PO SCH (21:00)
[2022-04-01] MEDS: PREGABALIN 50 MG CAPSULE PO SCH (21:00)
[2022-04-02] VITALS: BP 145/71
[2022-04-02] MEDS: DEXT 5%/0.9% NACL 1,000 ML IV SCH ×2 (01:04→22:00)
[2022-04-02 04:00] VITALS: BP 156/75
[2022-04-02] MEDS: BLOOD SUGAR DIAGNOSTIC STRIP TEST SCH ×4 (07:20→20:20)
[2022-04-02 08:00] VITALS: BP 152/74
[2022-04-02] MEDS: FUROSEMIDE 40MG TABLET PO SCH (08:16)
[2022-04-02] MEDS: CARVEDILOL 3.125 MG TABLET PO SCH ×2 (08:16→20:33)
[2022-04-02] MEDS: FERROUS SULFATE 325MG TABLET PO SCH ×3 (08:16→18:17)
[2022-04-02] MEDS: PIPERACILLIN/TAZOBACTAM 3.375 G in DEXTROSE 5% WATER 50 ML IV SCH ×2 (08:25→20:16)
[2022-04-02] MEDS: INSULIN LISPRO 100 UNITS/ML SUBCUT SCH ×4 (08:47→20:41)
[2022-04-02 08:58] LABS: BASOPHILS % 0.3 % (0.0-2.0); HEMATOCRIT. 28.2 % (36.0-48.0); HEMOGLOBIN. 9.2 g/dL (12.0-16.0); LYMPHOCYTES % 19.2 % (20.0-50.0); MEAN CORPUSCULAR HEMOGLOBIN 26.1 pg (28.0-32.0); MEAN PLATELET VOLUME 8.2 fl (7.4-10.4); MONOCYTES % 8.7 % (2.0-8.0); NEUTROPHILS % 69.8 % (40.0-76.0); PLATELET 300 x1000/uL (130-400); RED BLOOD CELL COUNT 3.52 mill/uL (4.2-5.4); RED CELL DISTRIBUTION WIDTH 14.3 % (11.6-14.6)
[2022-04-02] MEDS: INSULIN GLARGINE 100 UNITS/ML SUBCUT SCH (10:59)
[2022-04-02 12:00] VITALS: BP 157/79
[2022-04-02] MEDS ORDERED: VANCOMYCIN 500MG PREMIX 100 ML IV NR (12:00)
[2022-04-02 16:00] VITALS: BP 168/83
[2022-04-02] MEDS: CLONIDINE 0.1MG TABLET PO PRN (18:17)
[2022-04-02 20:00] VITALS: BP 174/77
[2022-04-02] MEDS: ATORVASTATIN CALCIUM 20MG TABLET PO SCH (20:33)
[2022-04-02] MEDS: PREGABALIN 50 MG CAPSULE PO SCH (20:33)
[2022-04-03] VITALS (7 sets, daily range): BP systolic 136–178; BP diastolic 65–78
[2022-04-03 05:38] LABS: BASOPHILS % 0.3 % (0.0-2.0); EOSINOPHILS % 2.7 % (0.0-5.0); HEMATOCRIT. 29.3 % (36.0-48.0); HEMOGLOBIN. 9.8 g/dL (12.0-16.0); MEAN CORPUSCULAR HEMOGLOBIN 26.1 pg (28.0-32.0); MEAN CORPUSCULAR VOLUME 78.3 fL (81.0-99.0); MEAN PLATELET VOLUME 7.9 fl (7.4-10.4); PLATELET 313 x1000/uL (130-400); RED BLOOD CELL COUNT 3.74 mill/uL (4.2-5.4); RED CELL DISTRIBUTION WIDTH 14.1 % (11.6-14.6)
[2022-04-03] MEDS: BLOOD SUGAR DIAGNOSTIC STRIP TEST SCH ×4 (07:54→20:28)
[2022-04-03] MEDS: INSULIN LISPRO 100 UNITS/ML SUBCUT SCH ×4 (08:00→20:33)
[2022-04-03] MEDS: FUROSEMIDE 40MG TABLET PO SCH (08:36)
[2022-04-03] MEDS: FERROUS SULFATE 325MG TABLET PO SCH ×3 (08:36→18:26)
[2022-04-03] MEDS: CARVEDILOL 3.125 MG TABLET PO SCH ×2 (08:36→20:28)
[2022-04-03] MEDS: PIPERACILLIN/TAZOBACTAM 3.375 G in DEXTROSE 5% WATER 50 ML IV SCH ×2 (08:40→20:28)
[2022-04-03] MEDS: INSULIN GLARGINE 100 UNITS/ML SUBCUT SCH (09:31)
[2022-04-03] MEDS: CLONIDINE 0.1MG TABLET PO PRN ×2 (16:22→18:26)
[2022-04-03] MEDS: ATORVASTATIN CALCIUM 20MG TABLET PO SCH (20:28)
[2022-04-03] MEDS: PREGABALIN 50 MG CAPSULE PO SCH (20:28)
[2022-04-04] VITALS: BP 153/75
[2022-04-04 04:30] VITALS: BP 167/90
[2022-04-04 05:00] VITALS: BP 161/76
[2022-04-04] MEDS: CLONIDINE 0.1MG TABLET PO PRN (05:10)
[2022-04-04 06:00] VITALS: BP 156/74
[2022-04-04 08:00] VITALS: BP 179/80
[2022-04-04] MEDS ORDERED: AMLODIPINE 5MG TABLET PO SCH (08:00)
[2022-04-04] MEDS: BLOOD SUGAR DIAGNOSTIC STRIP TEST SCH ×2 (08:19→12:26)
[2022-04-04] MEDS: INSULIN LISPRO 100 UNITS/ML SUBCUT SCH ×2 (08:24→12:29)
[2022-04-04] MEDS: CARVEDILOL 3.125 MG TABLET PO SCH (08:36)
[2022-04-04] MEDS: PIPERACILLIN/TAZOBACTAM 3.375 G in DEXTROSE 5% WATER 50 ML IV SCH (08:36)
[2022-04-04] MEDS: FERROUS SULFATE 325MG TABLET PO SCH ×2 (08:36→12:34)
[2022-04-04] MEDS: INSULIN GLARGINE 100 UNITS/ML SUBCUT SCH (09:53)
[2022-04-04] MEDS ORDERED: AMLO5TAB88 MT (10:15)
[2022-04-04 12:00] VITALS: BP 168/79
== END 2022-04-04 14:50 | disposition home health service (06) | DRG 256 ==
LOC: 6EST 20:39
PROVIDERS: ADMIT Internal Medicine; ATTEND Internal Medicine
PROC: 0Y6T0Z0 Detachment at Right 3rd Toe, Complete, Open Approach (ICD-10-PCS; principal; 2022-03-31)
PROC: 02HV33Z Insertion of Infusion Device into Superior Vena Cava, Percutaneous Approach (ICD-10-PCS; 2022-04-01)
PROC: B5181ZA Fluoroscopy of Superior Vena Cava using Low Osmolar Contrast, Guidance (ICD-10-PCS; 2022-04-01)
PROC: B548ZZA Ultrasonography of Superior Vena Cava, Guidance (ICD-10-PCS; 2022-04-01)
DX: E11.52 Type 2 diabetes mellitus with diabetic peripheral angiopathy with gangrene (principal); E44.1 Mild protein-calorie malnutrition; I13.0 Hypertensive heart and chronic kidney disease with heart failure and stage 1 through stage 4 chronic kidney disease, or unspecified chronic kidney disease; L03.115 Cellulitis of right lower limb; I50.22 Chronic systolic (congestive) heart failure; N17.9 Acute kidney failure, unspecified; N04.9 Nephrotic syndrome with unspecified morphologic changes; M86.9 Osteomyelitis, unspecified; Z20.822 Contact with and (suspected) exposure to COVID-19; E11.319 Type 2 diabetes mellitus with unspecified diabetic retinopathy without macular edema; E11.22 Type 2 diabetes mellitus with diabetic chronic kidney disease; E11.42 Type 2 diabetes mellitus with diabetic polyneuropathy; E11.621 Type 2 diabetes mellitus with foot ulcer; E11.69 Type 2 diabetes mellitus with other specified complication; L97.519 Non-pressure chronic ulcer of other part of right foot with unspecified severity; N18.9 Chronic kidney disease, unspecified; E78.1 Pure hyperglyceridemia; E78.5 Hyperlipidemia, unspecified; R80.9 Proteinuria, unspecified; F41.9 Anxiety disorder, unspecified; R45.1 Restlessness and agitation; Z79.4 Long term (current) use of insulin; Z86.16 Personal history of COVID-19; Z79.899 Other long term (current) drug therapy
CPT/HCPCS: 36415; 36573; 73620; 73721; 80048; 80053; 80202; 82962; 83735; 84100; 84145; 85025; 87426; 88304; 88311; 93923; 97161; C1725; J1580; J1815; J2250; J2543; J2704; J3010; J3370; J3490; J7042; J7060

== ENCOUNTER 2022-06-14 19:50 | Inpatient (IN) | payer MEDICARE, MEDICAID ==
[~2022-06-14] VITALS: Ht 162.6 cm; Wt 66.5 kg
[~2022-06-14 19:50] MED LIST changes: +AMLO5TAB88 MT
[2022-06-14] MEDS ORDERED: SODIUM CHLORIDE 0.9% 1000ML BAG (SEPSIS BOLUS) IV ONE (23:45)
[2022-06-15 00:01] LABS: BASOPHILS % 0.3 % (0.0-2.0); LYMPHOCYTES % 17.5 % (20.0-50.0); MEAN CORPUSCULAR HEMOGLOBIN 26.8 pg (28.0-32.0); MEAN CORPUSCULAR VOLUME 81.7 fL (81.0-99.0); MEAN PLATELET VOLUME 7.5 fl (7.4-10.4); MONOCYTES % 7.2 % (2.0-8.0); PLATELET 390 x1000/uL (130-400); RED BLOOD CELL COUNT 2.27 mill/uL (4.2-5.4); RED CELL DISTRIBUTION WIDTH 14.7 % (11.6-14.6)
[2022-06-15 00:09] LABS: CHLORIDE 103 mEq/L (98-107); HEMOGLOBIN. 6.1 g/dL (12.0-16.0)
[2022-06-15 00:10] LABS: HEMATOCRIT. 18.5 % (36.0-48.0)
[2022-06-15 00:12] LABS: PARTIAL THROMBOPLASTIN TIME 28.8 sec (23.4-31.0); PROTHROMBIN TIME 10.9 sec (9.6-11.0)
[2022-06-15 00:27] LABS: HCG SCREEN NEGATIVE
[2022-06-15] MEDS ORDERED: NITROGLYCERIN 0.4MG TABLET SL SL PRN (11:30)
[2022-06-15] MEDS ORDERED: CLONIDINE 0.1MG TABLET PO PRN (11:30)
[2022-06-15] MEDS ORDERED: DOCUSATE SODIUM 100MG CAPSULE PO PRN (11:30)
[2022-06-15] MEDS ORDERED: IPRATROPIUM/ALBUTEROL 0.5-3(2.5)MG/3ML NEB NEB PRN (11:30)
[2022-06-15] MEDS ORDERED: ONDANSETRON HCL 4MG/2ML INJ IV PRN (11:30)
[2022-06-15] MEDS ORDERED: TRAMADOL 50MG TABLET PO PRN (11:30)
[2022-06-15] MEDS ORDERED: ACETAMINOPHEN 325MG TABLET PO PRN ×2 (11:30)
[2022-06-15] MEDS ORDERED: ZOLPIDEM TARTRATE 5MG TABLET PO PRN (11:30)
[2022-06-15] MEDS ORDERED: GUAIFENESIN 200MG/10ML SUGAR FREE UDC PO PRN (11:30)
[2022-06-15] MEDS ORDERED: MAGNESIUM/ALUMINUM HYDROXIDE/SIMETHICONE 30ML UDC PO PRN (11:30)
[2022-06-15] MEDS: FUROSEMIDE 40MG TABLET PO SCH (11:30)
[2022-06-15] MEDS ORDERED: NALOXONE HCL 0.4MG/ML VIAL IV PRN (12:00)
[2022-06-15] MEDS ORDERED: DEXTROSE 50% WATER 50ML SYRINGE IV PRN (12:30)
[2022-06-15] MEDS: AMLODIPINE 5MG TABLET PO SCH (12:48)
[2022-06-15 15:09] LABS: BASOPHILS % 0.6 % (0.0-2.0); EOSINOPHILS % 1.2 % (0.0-5.0); LYMPHOCYTES % 22.5 % (20.0-50.0); MEAN CORPUSCULAR HEMOGLOBIN 27.6 pg (28.0-32.0); MEAN CORPUSCULAR VOLUME 83.1 fL (81.0-99.0); MEAN PLATELET VOLUME 7.5 fl (7.4-10.4); MONOCYTES % 7.3 % (2.0-8.0); NEUTROPHILS % 68.4 % (40.0-76.0); PLATELET 355 x1000/uL (130-400); RED BLOOD CELL COUNT 2.51 mill/uL (4.2-5.4); RED CELL DISTRIBUTION WIDTH 14.8 % (11.6-14.6)
[2022-06-15 15:11] LABS: HEMATOCRIT. 20.9 % (36.0-48.0); HEMOGLOBIN. 6.9 g/dL (12.0-16.0)
[2022-06-15 16:01] LABS: T4 FREE 1.28 ng/dL (0.76-1.46)
[2022-06-15 16:20] LABS: VITAMIN B12 SERUM 649 pg/mL (211-911)
[2022-06-15] MEDS: BLOOD SUGAR DIAGNOSTIC STRIP TEST SCH ×2 (16:30→21:00)
[2022-06-15] MEDS: INSULIN LISPRO 100 UNITS/ML SUBCUT SCH ×2 (18:25→23:05)
[2022-06-15 20:00] VITALS: BP 148/67
[2022-06-15 21:38] LABS: HEMATOCRIT 22.1 % (36.0-48.0); HEMOGLOBIN 7.1 g/dL (12.0-16.0)
[2022-06-15 21:40] LABS: CHLORIDE 111 mEq/L (98-107)
[2022-06-15] MEDS: LOSARTAN POTASSIUM 50 MG TABLET PO SCH (23:02)
[2022-06-15 23:09] VITALS: BP 148/67
[2022-06-15 23:19] VITALS: BP 148/67
[2022-06-15] MEDS ORDERED: GLIP10TA10 PO (23:29)
[2022-06-15] MEDS ORDERED: EMPA25TA PO (23:29)
[2022-06-15] MEDS ORDERED: CLOP-31 PO (23:31)
[2022-06-15] MEDS ORDERED: ASPI81TA47 PO (23:31)
[2022-06-15] MEDS ORDERED: DOXY150T5 PO (23:31)
[2022-06-15] MEDS ORDERED: LOSA50TA41 PO (23:32)
[2022-06-15] MEDS ORDERED: NITR1OIN TD (23:35)
[2022-06-16] VITALS (10 sets, daily range): BP systolic 122–168; BP diastolic 56–81
[2022-06-16 02:59] LABS: HEMOGLOBIN 6.8 g/dL (12.0-16.0)
[2022-06-16 03:00] LABS: HEMATOCRIT 19.8 % (36.0-48.0)
[2022-06-16] MEDS: BLOOD SUGAR DIAGNOSTIC STRIP TEST SCH ×4 (05:40→21:40)
[2022-06-16] MEDS: INSULIN LISPRO 100 UNITS/ML SUBCUT SCH ×4 (05:42→21:57)
[2022-06-16 06:18] LABS: CLARITY URINE CLEAR (CLEAR); COLOR URINE YELLOW (YELLOW); KETONES URINE NEGATIVE (NEGATIVE); LEUKOCYTE ESTERASE URINE NEGATIVE (NEGATIVE); NITRITE URINE NEGATIVE (NEGATIVE); OCCULT BLOOD URINE 3+ (NEGATIVE); PH URINE 5.5 (4.5-8.0); PROTEIN URINE 2+ (NEGATIVE); SPECIFIC GRAVITY URINE 1.014 (1.005-1.030); UROBILINOGEN URINE 0.2 E.U./dL (0.2-1.0)
[2022-06-16 06:53] LABS: SODIUM URINE RANDOM 80 mEq/L
[2022-06-16 07:01] LABS: *AMPHETAMINES SCREEN URINE NEGATIVE (NEGATIVE); *BARBITURATES SCREEN URINE NEGATIVE (NEGATIVE); *BENZODIAZEPINES SCREEN URINE NEGATIVE (NEGATIVE); *COCAINE SCREEN URINE NEGATIVE (NEGATIVE); CANNABINOID URINE SCREEN NEGATIVE (NEGATIVE); METHADONE URINE SCREEN NEGATIVE (NEGATIVE); OPIATES URINE SCREEN NEGATIVE (NEGATIVE); PHENCYCLIDINE URINE SCREEN NEGATIVE (NEGATIVE)
[2022-06-16 08:12] LABS: BASOPHILS % 0.5 % (0.0-2.0); HEMATOCRIT. 25.5 % (36.0-48.0); HEMOGLOBIN. 8.6 g/dL (12.0-16.0); LYMPHOCYTES % 18.8 % (20.0-50.0); MEAN CORPUSCULAR HEMOGLOBIN 28.1 pg (28.0-32.0); MEAN CORPUSCULAR VOLUME 83.6 fL (81.0-99.0); MEAN PLATELET VOLUME 7.5 fl (7.4-10.4); MONOCYTES % 7.2 % (2.0-8.0); NEUTROPHILS % 72.5 % (40.0-76.0); PLATELET 361 x1000/uL (130-400); RED BLOOD CELL COUNT 3.05 mill/uL (4.2-5.4); RED CELL DISTRIBUTION WIDTH 14.3 % (11.6-14.6)
[2022-06-16 08:33] LABS: CHLORIDE 111 mEq/L (98-107)
[2022-06-16] MEDS: FUROSEMIDE 40MG TABLET PO SCH (08:39)
[2022-06-16 08:58] LABS: PHOSPHORUS 4.1 mg/dL (2.5-4.9)
[2022-06-16] MEDS: LOSARTAN POTASSIUM 50 MG TABLET PO SCH ×2 (09:28→21:55)
[2022-06-16] MEDS: FAMOTIDINE 20MG TABLET PO SCH (09:29)
[2022-06-16] MEDS: AMLODIPINE 5MG TABLET PO SCH (09:29)
[2022-06-16 09:44] LABS: PROTHROMBIN TIME 11.1 sec (9.6-11.0)
[2022-06-16] MEDS ORDERED: VANCOMYCIN 1500MG in DEXTROSE 5% WATER 250ML IV NR (16:00)
[2022-06-16 16:05] LABS: HEMATOCRIT 26.9 % (36.0-48.0)
[2022-06-16] MEDS: PIPERACILLIN/TAZOBACTAM 3.375 G in DEXTROSE 5% WATER 50 ML IV SCH ×2 (16:26→22:47)
[2022-06-16] MEDS: IRON SUCROSE COMPLEX 100 MG/5 ML ML IV SCH (16:44)
[2022-06-17] VITALS: BP 144/70
[2022-06-17 04:00] VITALS: BP 138/66
[2022-06-17] MEDS: BLOOD SUGAR DIAGNOSTIC STRIP TEST SCH ×4 (05:20→20:50)
[2022-06-17] MEDS: INSULIN LISPRO 100 UNITS/ML SUBCUT SCH ×4 (05:20→20:50)
[2022-06-17] MEDS: PIPERACILLIN/TAZOBACTAM 3.375 G in DEXTROSE 5% WATER 50 ML IV SCH ×2 (05:22→14:13)
[2022-06-17 07:13] LABS: BASOPHILS % 0.3 % (0.0-2.0); HEMATOCRIT. 26.7 % (36.0-48.0); LYMPHOCYTES % 9.4 % (20.0-50.0); MEAN CORPUSCULAR HEMOGLOBIN 28.2 pg (28.0-32.0); MEAN CORPUSCULAR VOLUME 83.6 fL (81.0-99.0); MEAN PLATELET VOLUME 7.5 fl (7.4-10.4); MONOCYTES % 6.4 % (2.0-8.0); NEUTROPHILS % 82.9 % (40.0-76.0); PLATELET 386 x1000/uL (130-400); RED BLOOD CELL COUNT 3.19 mill/uL (4.2-5.4); RED CELL DISTRIBUTION WIDTH 14.6 % (11.6-14.6)
[2022-06-17 08:00] VITALS: BP_SYST 114; BP_DIAS 60; BP_DIAS 70
[2022-06-17 08:33] LABS: CHLORIDE 109 mEq/L (98-107)
[2022-06-17] MEDS: LOSARTAN POTASSIUM 50 MG TABLET PO SCH ×2 (08:55→20:48)
[2022-06-17] MEDS: AMLODIPINE 5MG TABLET PO SCH (08:56)
[2022-06-17] MEDS: FAMOTIDINE 20MG TABLET PO SCH (08:56)
[2022-06-17] MEDS: FUROSEMIDE 40MG TABLET PO SCH (08:57)
[2022-06-17 12:00] VITALS: BP 142/72
[2022-06-17 16:00] VITALS: BP 150/65
[2022-06-17] MEDS: IRON SUCROSE COMPLEX 100 MG/5 ML ML IV SCH (16:14)
[2022-06-17] MEDS ORDERED: VANCOMYCIN 750MG PREMIX 150 ML IV NR (17:00)
[2022-06-17 20:00] VITALS: BP 142/68
[2022-06-18] VITALS: BP 143/70
[2022-06-18 04:00] VITALS: BP 144/75
[2022-06-18] MEDS: INSULIN LISPRO 100 UNITS/ML SUBCUT SCH ×4 (05:47→21:50)
[2022-06-18] MEDS: BLOOD SUGAR DIAGNOSTIC STRIP TEST SCH ×4 (05:47→21:38)
[2022-06-18 08:00] VITALS: BP 123/62
[2022-06-18 08:33] LABS: BASOPHILS % 0.3 % (0.0-2.0); EOSINOPHILS % 1.2 % (0.0-5.0); HEMATOCRIT. 26.9 % (36.0-48.0); HEMOGLOBIN. 9.1 g/dL (12.0-16.0); LYMPHOCYTES % 17.3 % (20.0-50.0); MEAN CORPUSCULAR HEMOGLOBIN 28.1 pg (28.0-32.0); MEAN PLATELET VOLUME 7.4 fl (7.4-10.4); MONOCYTES % 7.2 % (2.0-8.0); PLATELET 425 x1000/uL (130-400); RED BLOOD CELL COUNT 3.23 mill/uL (4.2-5.4); RED CELL DISTRIBUTION WIDTH 14.5 % (11.6-14.6)
[2022-06-18] MEDS: AMLODIPINE 5MG TABLET PO SCH (09:33)
[2022-06-18] MEDS: LOSARTAN POTASSIUM 50 MG TABLET PO SCH ×2 (09:34→21:50)
[2022-06-18] MEDS: FUROSEMIDE 40MG TABLET PO SCH (09:34)
[2022-06-18] MEDS: FAMOTIDINE 20MG TABLET PO SCH (09:34)
[2022-06-18] MEDS: NITROGLYCERIN 0.4MG/HR PATCH TOP SCH (11:00)
[2022-06-18 12:00] VITALS: BP 135/70
[2022-06-18] MEDS: IRON SUCROSE COMPLEX 100 MG/5 ML ML IV SCH (14:57)
[2022-06-18 16:00] VITALS: BP 125/72
[2022-06-18 20:00] VITALS: BP 150/76
[2022-06-19] VITALS: BP 134/65
[2022-06-19] MEDS: PIPERACILLIN/TAZOBACTAM 3.375 G in DEXTROSE 5% WATER 50 ML IV SCH ×4 (00:46→21:29)
[2022-06-19 04:00] VITALS: BP 137/70
[2022-06-19] MEDS: BLOOD SUGAR DIAGNOSTIC STRIP TEST SCH ×4 (06:12→21:21)
[2022-06-19] MEDS: INSULIN LISPRO 100 UNITS/ML SUBCUT SCH ×4 (06:29→21:36)
[2022-06-19 06:47] LABS: BASOPHILS % 0.5 % (0.0-2.0); EOSINOPHILS % 1.6 % (0.0-5.0); HEMATOCRIT. 24.4 % (36.0-48.0); HEMOGLOBIN. 8.3 g/dL (12.0-16.0); LYMPHOCYTES % 19.4 % (20.0-50.0); MEAN CORPUSCULAR HEMOGLOBIN 28.2 pg (28.0-32.0); MEAN PLATELET VOLUME 7.6 fl (7.4-10.4); NEUTROPHILS % 70.5 % (40.0-76.0); PLATELET 389 x1000/uL (130-400); RED BLOOD CELL COUNT 2.95 mill/uL (4.2-5.4); RED CELL DISTRIBUTION WIDTH 14.2 % (11.6-14.6)
[2022-06-19 08:00] VITALS: BP 111/52
[2022-06-19] MEDS: AMLODIPINE 5MG TABLET PO SCH ×2 (09:00→15:34)
[2022-06-19] MEDS: FAMOTIDINE 20MG TABLET PO SCH (09:45)
[2022-06-19] MEDS: SODIUM CHLORIDE 0.45% 1,000 ML IV SCH (09:45)
[2022-06-19] MEDS: NITROGLYCERIN 0.4MG/HR PATCH TOP SCH (09:45)
[2022-06-19 12:00] VITALS: BP 163/80
[2022-06-19 16:00] VITALS: BP 151/75
[2022-06-19 20:00] VITALS: BP 140/65
[2022-06-20] VITALS: BP 133/68
[2022-06-20] MEDS: SODIUM CHLORIDE 0.45% 1,000 ML IV SCH ×2 (02:25→17:08)
[2022-06-20 04:00] VITALS: BP 150/74
[2022-06-20] MEDS: BLOOD SUGAR DIAGNOSTIC STRIP TEST SCH ×4 (05:34→20:43)
[2022-06-20] MEDS: PIPERACILLIN/TAZOBACTAM 3.375 G in DEXTROSE 5% WATER 50 ML IV SCH ×2 (05:37→21:34)
[2022-06-20] MEDS: INSULIN LISPRO 100 UNITS/ML SUBCUT SCH ×4 (05:42→21:33)
[2022-06-20 06:13] LABS: BASOPHILS % 0.5 % (0.0-2.0); EOSINOPHILS % 2.1 % (0.0-5.0); HEMATOCRIT. 23.4 % (36.0-48.0); LYMPHOCYTES % 17.4 % (20.0-50.0); MEAN CORPUSCULAR HEMOGLOBIN 28.2 pg (28.0-32.0); MEAN CORPUSCULAR VOLUME 82.8 fL (81.0-99.0); MEAN PLATELET VOLUME 7.8 fl (7.4-10.4); MONOCYTES % 7.7 % (2.0-8.0); NEUTROPHILS % 72.3 % (40.0-76.0); PLATELET 413 x1000/uL (130-400); RED BLOOD CELL COUNT 2.82 mill/uL (4.2-5.4); RED CELL DISTRIBUTION WIDTH 14.5 % (11.6-14.6)
[2022-06-20 08:00] VITALS: BP 141/73
[2022-06-20] MEDS: FAMOTIDINE 20MG TABLET PO SCH (08:58)
[2022-06-20] MEDS: NITROGLYCERIN 0.4MG/HR PATCH TOP SCH (09:17)
[2022-06-20 12:10] VITALS: BP 164/83
[2022-06-20 15:48] VITALS: BP 155/77
[2022-06-20 20:00] VITALS: BP 171/84
[2022-06-21] VITALS: BP 140/70
[2022-06-21 04:00] VITALS: BP 152/75
[2022-06-21] MEDS: BLOOD SUGAR DIAGNOSTIC STRIP TEST SCH ×3 (06:09→17:10)
[2022-06-21] MEDS: INSULIN LISPRO 100 UNITS/ML SUBCUT SCH ×3 (06:18→17:11)
[2022-06-21 06:47] LABS: BASOPHILS % 0.5 % (0.0-2.0); HEMATOCRIT. 23.9 % (36.0-48.0); HEMOGLOBIN. 8.2 g/dL (12.0-16.0); LYMPHOCYTES % 21.1 % (20.0-50.0); MEAN CORPUSCULAR HEMOGLOBIN 28.1 pg (28.0-32.0); MEAN CORPUSCULAR VOLUME 82.3 fL (81.0-99.0); MEAN PLATELET VOLUME 7.6 fl (7.4-10.4); MONOCYTES % 7.7 % (2.0-8.0); NEUTROPHILS % 67.7 % (40.0-76.0); PLATELET 382 x1000/uL (130-400); RED BLOOD CELL COUNT 2.91 mill/uL (4.2-5.4); RED CELL DISTRIBUTION WIDTH 14.9 % (11.6-14.6)
[2022-06-21] MEDS: PIPERACILLIN/TAZOBACTAM 3.375 G in DEXTROSE 5% WATER 50 ML IV SCH (08:13)
[2022-06-21] MEDS: FAMOTIDINE 20MG TABLET PO SCH (08:14)
[2022-06-21] MEDS: SODIUM CHLORIDE 0.45% 1,000 ML IV SCH (08:14)
[2022-06-21] MEDS: AMLODIPINE 5MG TABLET PO SCH (08:14)
[2022-06-21] MEDS: NITROGLYCERIN 0.4MG/HR PATCH TOP SCH (08:14)
[2022-06-21 08:38] VITALS: BP 145/74
[2022-06-21 12:00] VITALS: BP 154/71
[2022-06-21 16:00] VITALS: BP 151/74
[2022-06-21 17:44] VITALS: BP 151/74
[2022-06-21] MEDS ORDERED: MEROPENEM 1,000 MG in SODIUM CHLORIDE 0.9% 100 ML IV SCH (18:00)
== END 2022-06-21 20:31 | disposition home health service (06) | DRG 987 ==
LOC: ER 19:50 → MICUSO 06-15 01:05 → EDBEDREQ 06-15 01:09 → 7EST 06-15 18:39
PROVIDERS: ADMIT Internal Medicine; ATTEND Internal Medicine
PROC: 30233N1 Transfusion of Nonautologous Red Blood Cells into Peripheral Vein, Percutaneous Approach (ICD-10-PCS; principal; 2022-06-15)
PROC: 0SBM0ZZ Excision of Right Metatarsal-Phalangeal Joint, Open Approach (ICD-10-PCS; 2022-06-15)
PROC: 02HV33Z Insertion of Infusion Device into Superior Vena Cava, Percutaneous Approach (ICD-10-PCS; 2022-06-19)
PROC: B548ZZA Ultrasonography of Superior Vena Cava, Guidance (ICD-10-PCS; 2022-06-19)
DX: N80.9 Endometriosis, unspecified (principal); N17.0 Acute kidney failure with tubular necrosis; M86.8X7 Other osteomyelitis, ankle and foot; E11.52 Type 2 diabetes mellitus with diabetic peripheral angiopathy with gangrene; E46 Unspecified protein-calorie malnutrition; E87.1 Hypo-osmolality and hyponatremia; L03.115 Cellulitis of right lower limb; D50.9 Iron deficiency anemia, unspecified; D25.9 Leiomyoma of uterus, unspecified; E11.22 Type 2 diabetes mellitus with diabetic chronic kidney disease; E11.319 Type 2 diabetes mellitus with unspecified diabetic retinopathy without macular edema; E11.42 Type 2 diabetes mellitus with diabetic polyneuropathy; E11.621 Type 2 diabetes mellitus with foot ulcer; E11.69 Type 2 diabetes mellitus with other specified complication; E78.5 Hyperlipidemia, unspecified; E83.51 Hypocalcemia; I12.9 Hypertensive chronic kidney disease with stage 1 through stage 4 chronic kidney disease, or unspecified chronic kidney disease; L97.519 Non-pressure chronic ulcer of other part of right foot with unspecified severity; N18.9 Chronic kidney disease, unspecified; N92.4 Excessive bleeding in the premenopausal period; B96.1 Klebsiella pneumoniae [K. pneumoniae] as the cause of diseases classified elsewhere; Z79.899 Other long term (current) drug therapy; Z79.4 Long term (current) use of insulin; Z86.16 Personal history of COVID-19; Z68.25 Body mass index [BMI] 25.0-25.9, adult; Z89.429 Acquired absence of other toe(s), unspecified side; Z98.51 Tubal ligation status; Z79.02 Long term (current) use of antithrombotics/antiplatelets
CPT/HCPCS: 36415; 36573; 71045; 73721; 76830; 76856; 80048; 80053; 80061; 80202; 80305; 81003; 82607; 82652; 82728; 82746; 82962; 83036; 83540; 83550; 83735; 83930; 83935; 83970; 84100; 84300; 84439; 84443; 84484; 84703; 85014; 85018; 85025; 85049; 85384; 85651; 86850; 86900; 86920; 87070; 87075; 87077; 87186; 88311; 93005; 93922; 93970; 99285; C1725; J1815; J2185; J2543; J3370; J7030; J7050; J7060; P9016

== ENCOUNTER 2022-06-26 21:44 | Emergency (ER) | payer MEDICARE, MEDICAID ==
[~2022-06-26] VITALS: Ht 165.1 cm; Wt 75.0 kg
[~2022-06-26 21:44] MED LIST changes: +ASPI81TA47 PO; +CLOP-31 PO; +DOXY150T5 PO; +EMPA25TA PO; +GLIP10TA10 PO; +LOSA50TA41 PO; +NITR1OIN TD
[2022-06-26 21:48] VITALS: BP 129/67
[2022-06-26 23:13] LABS: HEMATOCRIT 24.9 % (36.0-48.0); HEMOGLOBIN 8.4 g/dL (12.0-16.0); MEAN CORPUSCULAR HEMOGLOBIN 28.3 pg (28.0-32.0); MEAN CORPUSCULAR VOLUME 83.9 fL (81.0-99.0); PLATELET 424 x1000/uL (130-400); RED BLOOD CELL COUNT 2.96 mill/uL (4.2-5.4); RED CELL DISTRIBUTION WIDTH 14.7 % (11.6-14.6)
[2022-06-26 23:20] LABS: CHLORIDE 105 mEq/L (98-107)
== END 2022-06-27 05:45 | disposition left against medical advice (07) ==
LOC: ER 21:57
DX: N93.8 Other specified abnormal uterine and vaginal bleeding (principal); R00.0 Tachycardia, unspecified; N80.00 Endometriosis of the uterus, unspecified; Z87.39 Personal history of other diseases of the musculoskeletal system and connective tissue
CPT/HCPCS: 36415; 80053; 85027; 86850; 86900; 99283

== ENCOUNTER 2022-06-27 20:53 | Inpatient (IN) | payer MEDICARE, MEDICAID ==
[~2022-06-27] VITALS: Ht 154.9 cm; Wt 72.6 kg
[2022-06-27 23:25] LABS: BASOPHILS % 0.5 % (0.0-2.0); EOSINOPHILS % 1.6 % (0.0-5.0); LYMPHOCYTES % 13.9 % (20.0-50.0); MEAN CORPUSCULAR HEMOGLOBIN 28.3 pg (28.0-32.0); MEAN CORPUSCULAR VOLUME 83.9 fL (81.0-99.0); MEAN PLATELET VOLUME 7.5 fl (7.4-10.4); MONOCYTES % 5.2 % (2.0-8.0); NEUTROPHILS % 78.8 % (40.0-76.0); PLATELET 401 x1000/uL (130-400); RED BLOOD CELL COUNT 2.44 mill/uL (4.2-5.4); RED CELL DISTRIBUTION WIDTH 15.1 % (11.6-14.6)
[2022-06-27 23:30] LABS: PROTHROMBIN TIME 10.5 sec (9.6-11.0)
[2022-06-27 23:56] LABS: CHLORIDE 106 mEq/L (98-107)
[2022-06-28] LABS: HEMOGLOBIN. 6.9 g/dL (12.0-16.0)
[2022-06-28 00:01] LABS: HEMATOCRIT. 20.5 % (36.0-48.0)
[2022-06-28 00:07] LABS: B-HCG QUANTITATIVE < 1 mIU/mL (<3)
[2022-06-28] MEDS ORDERED: SODIUM CHLORIDE 0.9% 1,000 ML IV ONE (00:30)
[2022-06-28] MEDS ORDERED: ONDANSETRON HCL 4MG/2ML INJ IV PRN (08:15)
[2022-06-28] MEDS ORDERED: DOCUSATE SODIUM 100MG CAPSULE PO PRN (08:15)
[2022-06-28] MEDS ORDERED: HYDROCODONE/ACETAMINOPHEN 5/325MG TABLET PO PRN (08:15)
[2022-06-28] MEDS ORDERED: ACETAMINOPHEN 325MG TABLET PO PRN ×2 (08:15)
[2022-06-28] MEDS ORDERED: CLONIDINE 0.1MG TABLET PO PRN (08:15)
[2022-06-28] MEDS ORDERED: LORAZEPAM 0.5MG TABLET PO PRN (08:15)
[2022-06-28] MEDS ORDERED: IPRATROPIUM/ALBUTEROL 0.5-3(2.5)MG/3ML NEB HHN PRN (08:15)
[2022-06-28] MEDS ORDERED: NALOXONE HCL 0.4MG/ML VIAL IV PRN (08:30)
[2022-06-28 12:00] LABS: HEMATOCRIT 25.1 % (36.0-48.0); HEMOGLOBIN 8.6 g/dL (12.0-16.0); MEAN CORPUSCULAR HEMOGLOBIN 29.5 pg (28.0-32.0); MEAN CORPUSCULAR VOLUME 86.2 fL (81.0-99.0); PLATELET 340 x1000/uL (130-400); RED BLOOD CELL COUNT 2.91 mill/uL (4.2-5.4); RED CELL DISTRIBUTION WIDTH 15.8 % (11.6-14.6)
[2022-06-28] MEDS ORDERED: MEROPENEM 1,000 MG in SODIUM CHLORIDE 0.9% 100 ML IV SCH (12:15)
[2022-06-28] MEDS: INSULIN GLARGINE 100 UNITS/ML SUBCUT SCH (12:30)
[2022-06-28] MEDS ORDERED: DEXTROSE 50% WATER 50ML SYRINGE IV PRN (12:30)
[2022-06-28] MEDS ORDERED: FUROSEMIDE 40MG/4 ML UDC PO SCH (12:30)
[2022-06-28] MEDS: BLOOD SUGAR DIAGNOSTIC STRIP TEST SCH ×2 (13:00→21:43)
[2022-06-28] MEDS ORDERED: MEROPENEM 1000MG in NORMAL SALINE 100ML IV SCH (13:00)
[2022-06-28] MEDS: INSULIN LISPRO 100 UNITS/ML SUBCUT SCH ×2 (13:20→21:46)
[2022-06-28] MEDS: FUROSEMIDE 40MG TABLET PO SCH (14:50)
[2022-06-28 16:02] LABS: HCG SCREEN NEGATIVE
[2022-06-28 20:00] VITALS: BP 161/75
[2022-06-28] MEDS: ATORVASTATIN CALCIUM 20MG TABLET PO SCH (21:41)
[2022-06-28] MEDS: AMLODIPINE 2.5MG TABLET PO SCH (21:41)
[2022-06-28] MEDS: MEROPENEM 1000MG in NORMAL SALINE 100ML IV SCH (21:42)
[2022-06-28] MEDS: CARVEDILOL 3.125 MG TABLET PO SCH (21:42)
[2022-06-29] VITALS (7 sets, daily range): BP systolic 132–165; BP diastolic 60–76
[2022-06-29] MEDS: BLOOD SUGAR DIAGNOSTIC STRIP TEST SCH ×4 (06:56→21:00)
[2022-06-29] MEDS: INSULIN LISPRO 100 UNITS/ML SUBCUT SCH ×4 (06:57→21:27)
[2022-06-29 07:50] LABS: BASOPHILS % 0.7 % (0.0-2.0); EOSINOPHILS % 2.6 % (0.0-5.0); HEMATOCRIT. 22.7 % (36.0-48.0); HEMOGLOBIN. 7.9 g/dL (12.0-16.0); LYMPHOCYTES % 22.8 % (20.0-50.0); MEAN CORPUSCULAR HEMOGLOBIN 30.3 pg (28.0-32.0); MEAN CORPUSCULAR VOLUME 86.9 fL (81.0-99.0); MEAN PLATELET VOLUME 7.8 fl (7.4-10.4); MONOCYTES % 7.8 % (2.0-8.0); NEUTROPHILS % 66.1 % (40.0-76.0); PLATELET 332 x1000/uL (130-400); RED BLOOD CELL COUNT 2.62 mill/uL (4.2-5.4); RED CELL DISTRIBUTION WIDTH 15.7 % (11.6-14.6)
[2022-06-29] MEDS: MEROPENEM 1000MG in NORMAL SALINE 100ML IV SCH ×2 (09:01→21:22)
[2022-06-29] MEDS: FUROSEMIDE 40MG TABLET PO SCH (09:02)
[2022-06-29] MEDS: CARVEDILOL 3.125 MG TABLET PO SCH ×2 (09:02→21:23)
[2022-06-29] MEDS: AMLODIPINE 2.5MG TABLET PO SCH ×2 (09:02→21:23)
[2022-06-29] MEDS: INSULIN GLARGINE 100 UNITS/ML SUBCUT SCH (09:36)
[2022-06-29] MEDS: ATORVASTATIN CALCIUM 20MG TABLET PO SCH (21:23)
[2022-06-30] VITALS: BP 159/72
[2022-06-30 04:00] VITALS: BP 152/73
[2022-06-30] MEDS: INSULIN LISPRO 100 UNITS/ML SUBCUT SCH ×3 (06:58→17:46)
[2022-06-30] MEDS: BLOOD SUGAR DIAGNOSTIC STRIP TEST SCH ×3 (06:58→17:03)
[2022-06-30 08:00] VITALS: BP 129/69
[2022-06-30] MEDS: MEROPENEM 1000MG in NORMAL SALINE 100ML IV SCH (08:38)
[2022-06-30] MEDS: FUROSEMIDE 40MG TABLET PO SCH (08:38)
[2022-06-30] MEDS: AMLODIPINE 2.5MG TABLET PO SCH (08:38)
[2022-06-30] MEDS: CARVEDILOL 3.125 MG TABLET PO SCH (08:39)
[2022-06-30] MEDS: INSULIN GLARGINE 100 UNITS/ML SUBCUT SCH (10:24)
[2022-06-30 12:00] VITALS: BP 126/72
[2022-06-30] MEDS ORDERED: TRANEXAMIC ACID 1,000 MG in SODIUM CHLORIDE 0.9% 100 ML IV NR (15:00)
[2022-06-30 15:01] VITALS: BP 126/72
[2022-06-30 16:00] VITALS: BP 164/75
[2022-06-30 16:14] LABS: BASOPHILS % 0.8 % (0.0-2.0); EOSINOPHILS % 2.1 % (0.0-5.0); HEMATOCRIT. 24.1 % (36.0-48.0); HEMOGLOBIN. 7.9 g/dL (12.0-16.0); LYMPHOCYTES % 21.1 % (20.0-50.0); MEAN CORPUSCULAR HEMOGLOBIN 29.1 pg (28.0-32.0); MEAN CORPUSCULAR VOLUME 88.4 fL (81.0-99.0); MEAN PLATELET VOLUME 7.9 fl (7.4-10.4); MONOCYTES % 7.3 % (2.0-8.0); NEUTROPHILS % 68.7 % (40.0-76.0); PLATELET 332 x1000/uL (130-400); RED BLOOD CELL COUNT 2.72 mill/uL (4.2-5.4); RED CELL DISTRIBUTION WIDTH 15.5 % (11.6-14.6)
[2022-06-30 17:02] LABS: CHLORIDE 104 mEq/L (98-107)
[2022-06-30 17:08] LABS: PHOSPHORUS 2.9 mg/dL (2.5-4.9)
[2022-06-30] MEDS ORDERED: ALBUTEROL (0.083%) 2.5MG/3ML NEB HHN PRN (21:00)
[2022-06-30] MEDS ORDERED: IPRATROPIUM BROMIDE (0.02%) 0.5MG/2.5ML NEB HHN PRN (21:00)
== END 2022-06-30 19:40 | disposition home health service (06) | DRG 760 ==
LOC: ER 20:53 → 8WST 06-28 01:32
PROVIDERS: ADMIT Family Medicine Adult Medicine; ATTEND Family Medicine Adult Medicine
PROC: 30233N1 Transfusion of Nonautologous Red Blood Cells into Peripheral Vein, Percutaneous Approach (ICD-10-PCS; principal; 2022-06-28)
DX: N92.0 Excessive and frequent menstruation with regular cycle (principal); D62 Acute posthemorrhagic anemia; I13.0 Hypertensive heart and chronic kidney disease with heart failure and stage 1 through stage 4 chronic kidney disease, or unspecified chronic kidney disease; I50.22 Chronic systolic (congestive) heart failure; E11.52 Type 2 diabetes mellitus with diabetic peripheral angiopathy with gangrene; M86.8X7 Other osteomyelitis, ankle and foot; L03.115 Cellulitis of right lower limb; N17.9 Acute kidney failure, unspecified; E11.65 Type 2 diabetes mellitus with hyperglycemia; N18.9 Chronic kidney disease, unspecified; E78.00 Pure hypercholesterolemia, unspecified; E11.319 Type 2 diabetes mellitus with unspecified diabetic retinopathy without macular edema; E11.42 Type 2 diabetes mellitus with diabetic polyneuropathy; E11.22 Type 2 diabetes mellitus with diabetic chronic kidney disease; L97.519 Non-pressure chronic ulcer of other part of right foot with unspecified severity; E11.621 Type 2 diabetes mellitus with foot ulcer; E88.09 Other disorders of plasma-protein metabolism, not elsewhere classified; E87.5 Hyperkalemia; E78.1 Pure hyperglyceridemia; E11.69 Type 2 diabetes mellitus with other specified complication; Z79.4 Long term (current) use of insulin; Z79.02 Long term (current) use of antithrombotics/antiplatelets; Z79.899 Other long term (current) drug therapy; Z86.16 Personal history of COVID-19
CPT/HCPCS: 36415; 71045; 76770; 80048; 80053; 82962; 83735; 84100; 84132; 84702; 84703; 85025; 85027; 86850; 86900; 86920; 87426; 99291; J1815; J1940; J2185; J7030; J7050; P9016

== ENCOUNTER 2022-07-06 19:35 | Inpatient (IN) | payer MEDICARE, MEDICAID ==
[~2022-07-06] VITALS: Ht 162.6 cm; Wt 71.2 kg
[~2022-07-06 19:35] MED LIST changes: -DOXY150T5 PO
[2022-07-06 20:38] LABS: BASOPHILS % 0.7 % (0.0-2.0); EOSINOPHILS % 2.5 % (0.0-5.0); LYMPHOCYTES % 22.8 % (20.0-50.0); MEAN CORPUSCULAR HEMOGLOBIN 29.1 pg (28.0-32.0); MEAN CORPUSCULAR VOLUME 86.6 fL (81.0-99.0); MEAN PLATELET VOLUME 7.5 fl (7.4-10.4); MONOCYTES % 6.7 % (2.0-8.0); NEUTROPHILS % 67.3 % (40.0-76.0); PLATELET 404 x1000/uL (130-400); RED BLOOD CELL COUNT 2.34 mill/uL (4.2-5.4); RED CELL DISTRIBUTION WIDTH 15.4 % (11.6-14.6)
[2022-07-06 20:41] LABS: HEMATOCRIT. 20.3 % (36.0-48.0); HEMOGLOBIN. 6.8 g/dL (12.0-16.0)
[2022-07-06 20:48] LABS: INR 0.9; PROTHROMBIN TIME 10.2 sec (9.6-11.0)
[2022-07-06 20:55] LABS: HCG SCREEN NEGATIVE
[2022-07-06 20:56] LABS: CHLORIDE 107 mEq/L (98-107)
[2022-07-07] VITALS (9 sets, daily range): BP systolic 149–170; BP diastolic 58–87
[2022-07-07 06:06] LABS: BASOPHILS % 0.5 % (0.0-2.0); EOSINOPHILS % 2.3 % (0.0-5.0); LYMPHOCYTES % 19.3 % (20.0-50.0); MEAN CORPUSCULAR HEMOGLOBIN 29.6 pg (28.0-32.0); MEAN CORPUSCULAR VOLUME 95.9 fL (81.0-99.0); MEAN PLATELET VOLUME 7.4 fl (7.4-10.4); MONOCYTES % 7.2 % (2.0-8.0); NEUTROPHILS % 70.7 % (40.0-76.0); PLATELET 138 x1000/uL (130-400); RED BLOOD CELL COUNT 1.73 mill/uL (4.2-5.4); RED CELL DISTRIBUTION WIDTH 16.1 % (11.6-14.6)
[2022-07-07 06:21] LABS: HEMATOCRIT. 16.6 % (36.0-48.0); HEMOGLOBIN. 5.1 g/dL (12.0-16.0)
[2022-07-07] MEDS ORDERED: ATOR20TA PO (09:21)
[2022-07-07] MEDS ORDERED: CLOP-31 PO (09:21)
[2022-07-07] MEDS ORDERED: EMPA25TA PO (09:21)
[2022-07-07] MEDS ORDERED: GLIP10TA10 PO (09:21)
[2022-07-07] MEDS ORDERED: GUAIFENESIN 200MG/10ML SUGAR FREE UDC PO PRN (09:30)
[2022-07-07] MEDS ORDERED: CLONIDINE 0.1MG TABLET PO PRN (09:30)
[2022-07-07] MEDS ORDERED: ONDANSETRON HCL 4MG/2ML INJ IV PRN (09:30)
[2022-07-07] MEDS ORDERED: ACETAMINOPHEN 325MG TABLET PO PRN ×2 (09:30)
[2022-07-07] MEDS ORDERED: IPRATROPIUM/ALBUTEROL 0.5-3(2.5)MG/3ML NEB NEB PRN (09:30)
[2022-07-07] MEDS ORDERED: DOCUSATE SODIUM 100MG CAPSULE PO PRN (09:30)
[2022-07-07] MEDS ORDERED: MAGNESIUM/ALUMINUM HYDROXIDE/SIMETHICONE 30ML UDC PO PRN (09:30)
[2022-07-07] MEDS ORDERED: DEXTROSE 50% WATER 50ML SYRINGE IV PRN (09:45)
[2022-07-07] MEDS ORDERED: PNEUMOCOCCAL 23-VAL P-SAC VAC 0.5 ML IM ONE (10:00)
[2022-07-07] MEDS: PANTOPRAZOLE SODIUM 40 MG/VIAL IV SCH (10:02)
[2022-07-07] MEDS: AMLODIPINE 5MG TABLET PO SCH (10:02)
[2022-07-07] MEDS: INSULIN GLARGINE 100 UNITS/ML SUBCUT SCH (10:03)
[2022-07-07] MEDS: FUROSEMIDE 20MG/2ML VIAL IVP SCH ×2 (10:03→20:59)
[2022-07-07] MEDS ORDERED: IRON SUCROSE COMPLEX 100 MG/5 ML ML IV SCH (10:45)
[2022-07-07] MEDS: BLOOD SUGAR DIAGNOSTIC STRIP TEST SCH ×3 (11:41→20:28)
[2022-07-07] MEDS: INSULIN LISPRO 100 UNITS/ML SUBCUT SCH ×3 (11:41→20:28)
[2022-07-07] MEDS: IRON SUCROSE COMPLEX 100 MG/5 ML ML IV SCH (12:10)
[2022-07-07 13:45] LABS: *AMPHETAMINES SCREEN URINE NEGATIVE (NEGATIVE); *BARBITURATES SCREEN URINE NEGATIVE (NEGATIVE); *BENZODIAZEPINES SCREEN URINE NEGATIVE (NEGATIVE); *COCAINE SCREEN URINE NEGATIVE (NEGATIVE); CANNABINOID URINE SCREEN NEGATIVE (NEGATIVE); METHADONE URINE SCREEN NEGATIVE (NEGATIVE); OPIATES URINE SCREEN NEGATIVE (NEGATIVE); PHENCYCLIDINE URINE SCREEN NEGATIVE (NEGATIVE)
[2022-07-07] MEDS ORDERED: IPRATROPIUM BROMIDE (0.02%) 0.5MG/2.5ML NEB HHN PRN (15:00)
[2022-07-07] MEDS ORDERED: ALBUTEROL (0.083%) 2.5MG/3ML NEB HHN PRN (15:00)
[2022-07-07] MEDS: MEROPENEM 1,000 MG in SODIUM CHLORIDE 0.9% 100 ML IV SCH (16:11)
[2022-07-07 16:29] LABS: HEMOGLOBIN 11.7 g/dL (12.0-16.0)
[2022-07-07 17:05] LABS: T4 FREE 1.11 ng/dL (0.76-1.46)
[2022-07-07 17:14] LABS: FOLIC ACID (FOLATE) SERUM 9.7 ng/mL (>5.38)
[2022-07-07] MEDS ORDERED: ZOLPIDEM TARTRATE 5MG TABLET PO PRN (21:00)
[2022-07-08] VITALS: BP 148/91
[2022-07-08 04:00] VITALS: BP 154/78
[2022-07-08 05:38] LABS: CHLORIDE 110 mEq/L (98-107)
[2022-07-08 05:47] LABS: BASOPHILS % 0.5 % (0.0-2.0); EOSINOPHILS % 2.1 % (0.0-5.0); HEMATOCRIT. 33.3 % (36.0-48.0); HEMOGLOBIN. 11.2 g/dL (12.0-16.0); MEAN CORPUSCULAR HEMOGLOBIN 29.6 pg (28.0-32.0); MEAN CORPUSCULAR VOLUME 87.9 fL (81.0-99.0); MEAN PLATELET VOLUME 7.5 fl (7.4-10.4); MONOCYTES % 7.5 % (2.0-8.0); NEUTROPHILS % 73.9 % (40.0-76.0); PLATELET 363 x1000/uL (130-400); RED BLOOD CELL COUNT 3.79 mill/uL (4.2-5.4); RED CELL DISTRIBUTION WIDTH 15.9 % (11.6-14.6)
[2022-07-08 05:50] LABS: PHOSPHORUS 3.3 mg/dL (2.5-4.9)
[2022-07-08] MEDS: MEROPENEM 1,000 MG in SODIUM CHLORIDE 0.9% 100 ML IV SCH ×2 (06:27→16:41)
[2022-07-08] MEDS: BLOOD SUGAR DIAGNOSTIC STRIP TEST SCH ×4 (07:10→21:01)
[2022-07-08] MEDS: INSULIN LISPRO 100 UNITS/ML SUBCUT SCH ×4 (07:40→21:00)
[2022-07-08 08:00] VITALS: BP 153/76
[2022-07-08] MEDS: PANTOPRAZOLE SODIUM 40 MG/VIAL IV SCH (08:27)
[2022-07-08] MEDS: AMLODIPINE 5MG TABLET PO SCH (08:27)
[2022-07-08] MEDS: FUROSEMIDE 20MG/2ML VIAL IVP SCH ×2 (08:28→21:02)
[2022-07-08] MEDS: INSULIN GLARGINE 100 UNITS/ML SUBCUT SCH (09:49)
[2022-07-08] MEDS ORDERED: IRON SUCROSE COMPLEX 100 MG/5 ML ML IV SCH (10:45)
[2022-07-08 12:00] VITALS: BP 148/82
[2022-07-08] MEDS: IRON SUCROSE COMPLEX 100 MG/5 ML ML IV SCH (12:21)
[2022-07-08 16:00] VITALS: BP 145/65
[2022-07-08 20:00] VITALS: BP 162/83
[2022-07-09] VITALS: BP 147/77
[2022-07-09 04:00] VITALS: BP 154/75
[2022-07-09] MEDS: MEROPENEM 1,000 MG in SODIUM CHLORIDE 0.9% 100 ML IV SCH (06:18)
[2022-07-09] MEDS: INSULIN LISPRO 100 UNITS/ML SUBCUT SCH (07:03)
[2022-07-09] MEDS: BLOOD SUGAR DIAGNOSTIC STRIP TEST SCH (07:03)
[2022-07-09 08:00] VITALS: BP 157/83
[2022-07-09] MEDS: AMLODIPINE 5MG TABLET PO SCH (09:22)
[2022-07-09] MEDS: PANTOPRAZOLE SODIUM 40 MG/VIAL IV SCH (09:22)
[2022-07-09] MEDS: FUROSEMIDE 20MG/2ML VIAL IVP SCH (09:23)
[2022-07-09] MEDS: INSULIN GLARGINE 100 UNITS/ML SUBCUT SCH (09:24)
[2022-07-09] MEDS: IRON SUCROSE COMPLEX 100 MG/5 ML ML IV SCH (09:24)
[2022-07-09 12:00] VITALS: BP 147/81
[2022-07-09 12:55] VITALS: BP 147/81
== END 2022-07-09 15:45 | disposition home or self-care (01) | DRG 811 ==
LOC: ER 19:35 → MICUSO 22:00 → EDBEDREQTM 22:05 → EDBEDREQ 22:05 → 8WST 07-07 10:16
PROVIDERS: ADMIT Internal Medicine; ATTEND Internal Medicine
PROC: 30233N1 Transfusion of Nonautologous Red Blood Cells into Peripheral Vein, Percutaneous Approach (ICD-10-PCS; principal; 2022-07-06)
DX: D62 Acute posthemorrhagic anemia (principal); N17.0 Acute kidney failure with tubular necrosis; E44.0 Moderate protein-calorie malnutrition; M86.9 Osteomyelitis, unspecified; N93.8 Other specified abnormal uterine and vaginal bleeding; D25.9 Leiomyoma of uterus, unspecified; E83.51 Hypocalcemia; E78.00 Pure hypercholesterolemia, unspecified; I10 Essential (primary) hypertension; E11.65 Type 2 diabetes mellitus with hyperglycemia; E11.69 Type 2 diabetes mellitus with other specified complication; N80.9 Endometriosis, unspecified; Z97.4 Presence of external hearing-aid; Z68.26 Body mass index [BMI] 26.0-26.9, adult; Z98.891 History of uterine scar from previous surgery; Z90.49 Acquired absence of other specified parts of digestive tract
CPT/HCPCS: 36415; 80053; 80061; 80305; 82607; 82746; 82962; 83036; 83540; 83550; 83735; 84100; 84439; 84443; 84703; 85014; 85018; 85025; 86850; 86900; 86920; 90732; 93970; 99291; C9113; J1815; J1940; J2185; J7050; P9016

== ENCOUNTER 2022-08-09 12:52 | Emergency (ER) | payer MEDICARE, MEDICAID ==
[~2022-08-09] VITALS: Ht 167.6 cm; Wt 75.0 kg
[~2022-08-09 12:52] MED LIST changes: +ATOR20TA PO
[2022-08-09] MEDS ORDERED: KETOROLAC 30MG/ML VIAL IV STA (17:50)
[2022-08-09] MEDS ORDERED: ONDANSETRON HCL 4MG/2ML INJ IV STA (17:50)
[2022-08-09] MEDS ORDERED: SODIUM CHLORIDE 0.9% 1,000 ML IV ONE (18:00)
[2022-08-09 18:16] LABS: BASOPHILS % 0.9 % (0.0-2.0); EOSINOPHILS % 3.2 % (0.0-5.0); HEMATOCRIT. 32.8 % (36.0-48.0); HEMOGLOBIN. 11.2 g/dL (12.0-16.0); LYMPHOCYTES % 27.8 % (20.0-50.0); MEAN CORPUSCULAR HEMOGLOBIN 28.5 pg (28.0-32.0); MEAN CORPUSCULAR VOLUME 83.5 fL (81.0-99.0); MEAN PLATELET VOLUME 7.6 fl (7.4-10.4); MONOCYTES % 6.9 % (2.0-8.0); NEUTROPHILS % 61.2 % (40.0-76.0); PLATELET 413 x1000/uL (130-400); RED BLOOD CELL COUNT 3.92 mill/uL (4.2-5.4); RED CELL DISTRIBUTION WIDTH 14.8 % (11.6-14.6)
[2022-08-09 18:22] LABS: CHLORIDE 109 mEq/L (98-107)
[2022-08-09 18:29] LABS: PROTHROMBIN TIME 10.8 sec (9.6-11.0)
[2022-08-09 19:26] LABS: CLARITY URINE CLEAR (CLEAR); COLOR URINE YELLOW (YELLOW); KETONES URINE NEGATIVE (NEGATIVE); LEUKOCYTE ESTERASE URINE NEGATIVE (NEGATIVE); NITRITE URINE NEGATIVE (NEGATIVE); OCCULT BLOOD URINE NEGATIVE (NEGATIVE); PH URINE 5.5 (4.5-8.0); PROTEIN URINE 3+ (NEGATIVE); SPECIFIC GRAVITY URINE 1.021 (1.005-1.030); UROBILINOGEN URINE 0.2 E.U./dL (0.2-1.0)
[2022-08-09 23:04] VITALS: BP 130/67
== END 2022-08-09 23:00 | disposition home or self-care (01) ==
LOC: ER 12:52
DX: S37.009A Unspecified injury of unspecified kidney, initial encounter (principal); I10 Essential (primary) hypertension; E78.00 Pure hypercholesterolemia, unspecified; E11.9 Type 2 diabetes mellitus without complications; Z79.899 Other long term (current) drug therapy; Z98.890 Other specified postprocedural states; Z98.51 Tubal ligation status; Z90.49 Acquired absence of other specified parts of digestive tract; Z79.82 Long term (current) use of aspirin; X58.XXXA Exposure to other specified factors, initial encounter; Y93.89 Activity, other specified; Y92.89 Other specified places as the place of occurrence of the external cause; Y99.8 Other external cause status
CPT/HCPCS: 36415; 74176; 80053; 81003; 83690; 85025; 85610; 96361; 96374; 96375; 99285; J1885; J2405; J7030

== ENCOUNTER 2022-08-31 12:45 | Emergency (ER) | payer MEDICARE, MEDICAID ==
[~2022-08-31] VITALS: Ht 162.6 cm; Wt 73.0 kg
[2022-08-31] MEDS ORDERED: VISCOUS LIDOCAINE 2% 15 ML UDC PO STA (13:20)
[2022-08-31] MEDS ORDERED: MAGNESIUM/ALUMINUM HYDROXIDE/SIMETHICONE 30ML UDC PO STA (13:20)
[2022-08-31] MEDS ORDERED: FAMOTIDINE 20MG TABLET PO ONE (13:30)
[2022-08-31 15:03] LABS: CLARITY URINE CLEAR (CLEAR); COLOR URINE YELLOW (YELLOW); KETONES URINE 1+ (NEGATIVE); LEUKOCYTE ESTERASE URINE NEGATIVE (NEGATIVE); NITRITE URINE NEGATIVE (NEGATIVE); OCCULT BLOOD URINE 3+ (NEGATIVE); PH URINE 5.5 (4.5-8.0); PROTEIN URINE 4+ (NEGATIVE); SPECIFIC GRAVITY URINE 1.026 (1.005-1.030); UROBILINOGEN URINE 0.2 E.U./dL (0.2-1.0)
[2022-08-31 15:06] LABS: BASOPHILS % 0.6 % (0.0-2.0); EOSINOPHILS % 0.4 % (0.0-5.0); HEMATOCRIT. 37.9 % (36.0-48.0); HEMOGLOBIN. 12.6 g/dL (12.0-16.0); MEAN CORPUSCULAR HEMOGLOBIN 26.9 pg (28.0-32.0); MEAN CORPUSCULAR VOLUME 80.6 fL (81.0-99.0); MEAN PLATELET VOLUME 8.4 fl (7.4-10.4); MONOCYTES % 3.7 % (2.0-8.0); NEUTROPHILS % 82.3 % (40.0-76.0); PLATELET 368 x1000/uL (130-400); RED CELL DISTRIBUTION WIDTH 14.6 % (11.6-14.6)
[2022-08-31 15:14] LABS: HCG SCREEN NEGATIVE
[2022-08-31 15:15] LABS: CHLORIDE 105 mEq/L (98-107)
[2022-08-31] MEDS ORDERED: MAG-55 MT (15:39)
[2022-08-31] MEDS ORDERED: SODIUM CHLORIDE 0.9% 1,000 ML IV ONE (15:45)
[2022-08-31] MEDS ORDERED: ONDANSETRON HCL 4MG/2ML INJ IV ONE (15:45)
[2022-08-31] MEDS ORDERED: ONDA4TAB50 MT (18:21)
[2022-08-31 18:38] VITALS: BP 133/78
== END 2022-08-31 18:39 | disposition home or self-care (01) ==
LOC: ER 12:45
DX: R10.13 Epigastric pain (principal); E78.00 Pure hypercholesterolemia, unspecified; E11.9 Type 2 diabetes mellitus without complications; I10 Essential (primary) hypertension; Z90.49 Acquired absence of other specified parts of digestive tract; Z98.890 Other specified postprocedural states; Z98.51 Tubal ligation status; Z79.899 Other long term (current) drug therapy; Z79.82 Long term (current) use of aspirin
CPT/HCPCS: 36415; 71045; 74176; 80053; 81003; 83690; 84484; 84703; 85025; 93005; 96361; 96374; 99285; J2405; J7030

== ENCOUNTER 2023-02-14 21:32 | Emergency (ER) | payer MEDICARE, MEDICAID ==
[~2023-02-14] VITALS: Ht 162.6 cm; Wt 68.0 kg
[~2023-02-14 21:32] MED LIST changes: +AMLO10TA80 PO; -AMLO5TAB88 MT; +APIX5TAB PO; +ASCO-339 PO; -ASPI81TA47 PO; -ATOR20TA65 MT; +CARV3.1242 PO; -CLOP-31 PO; -COR3 PO; -FERR325T6 MT; -FURO40TA5 MT; +FURO40TA5 PO; +LEVO-65 MT; -LOSA50TA41 PO; -NITR1OIN TD; +PANT40TA51 PO
[2023-02-14 22:08] VITALS: O2SAT 99
[2023-02-14 22:46] LABS: BASOPHILS % 0.6 % (0.0-2.0); DIFFERENTIAL COMMENT 0; EOSINOPHILS % 3.5 % (0.0-5.0); HEMATOCRIT. 25.8 % (36.0-48.0); HEMOGLOBIN. 8.4 g/dL (12.0-16.0); LYMPHOCYTES % 16.9 % (20.0-50.0); MEAN CORPUSCULAR HEMOGLOBIN 23.1 pg (28.0-32.0); MEAN CORPUSCULAR HGB CONC 32.4 g/dL (31.0-37.0); MEAN CORPUSCULAR VOLUME 71.2 fL (81.0-99.0); MEAN PLATELET VOLUME 8.2 fl (7.4-10.4); MONOCYTES % 7.5 % (2.0-8.0); NEUTROPHILS % 71.5 % (40.0-76.0); PLATELET 250 x1000/uL (130-400); RED BLOOD CELL COUNT 3.62 mill/uL (4.2-5.4); WHITE BLOOD COUNT 10.1 x1000/uL (4.5-11.0)
[2023-02-14 22:52] LABS: CHLORIDE 112 mEq/L (98-107); INDEX HEMOLYSI 1 (1-3); INDEX ICTERIC 1 (1-4); INDEX LIPEMIC 1 (1-3); POTASSIUM 4.3 mEq/L (3.5-5.1); SODIUM 136 mEq/L (136-145)
[2023-02-14 23:09] LABS: ALANINE AMINOTRANSFERASE 23 IU/L (13-61); ALBUMIN 3.1 g/dL (3.4-5.0); ASPARTATE AMINOTRANSFERASE 27 IU/L (15-37); BILIRUBIN TOTAL 0.4 mg/dL (0.1-1.0); CALCIUM 7.1 mg/dL (8.5-10.1); CARBON DIOXIDE 22 mEq/L (21-32); GLUCOSE 191 mg/dL (70-105); PROTEIN TOTAL 7.9 g/dL (6.0-8.3); TROPONIN I HIGH SENSITIVITY 10 ng/L (<54)
[2023-02-14 23:21] LABS: UREA NITROGEN BLOOD 68 mg/dL (7-21)
[2023-02-14 23:21] LABS: CLARITY URINE CLEAR (CLEAR); COLOR URINE YELLOW (YELLOW); GLUCOSE URINE 3+ (NEGATIVE); KETONES URINE NEGATIVE (NEGATIVE); LEUKOCYTE ESTERASE URINE NEGATIVE (NEGATIVE); NITRITE URINE NEGATIVE (NEGATIVE); OCCULT BLOOD URINE TRACE (NEGATIVE); PH URINE 5.5 (4.5-8.0); PROTEIN URINE 2+ (NEGATIVE); SPECIFIC GRAVITY URINE 1.016 (1.005-1.030); UROBILINOGEN URINE 0.2 E.U./dL (0.2-1.0)
[2023-02-14 23:24] LABS: BACTERIA URINE NONE SEEN; RBC URINE 0-2 /hpf (0-2); SQUAMOUS EPITHELIAL CELL URINE NONE SEEN /lpf (RARE/1+); WBC URINE 0-2 /hpf (0-2); YEAST URINE NONE SEEN
[2023-02-15 01:39] VITALS: BP 151/70; PULSE 90; RESP 17; TEMP 98.3
== END 2023-02-15 01:58 | disposition home or self-care (01) ==
LOC: ER 21:32
DX: R06.00 Dyspnea, unspecified (principal); I11.0 Hypertensive heart disease with heart failure; I50.9 Heart failure, unspecified; E11.9 Type 2 diabetes mellitus without complications; Z79.899 Other long term (current) drug therapy; Z90.49 Acquired absence of other specified parts of digestive tract; Z98.890 Other specified postprocedural states
CPT/HCPCS: 36415; 71045; 80053; 81003; 81025; 84484; 85025; 93005; 99285

== ENCOUNTER 2023-12-03 13:15 | Inpatient (IN) | payer MEDICARE, MEDICAID ==
[~2023-12-03] VITALS: Ht 162.6 cm; Wt 67.1 kg
[~2023-12-03 13:15] MED LIST changes: +ALLO100T PO; +CALC667C PO; -EMPA25TA PO; +FERR325T6 PO; +FOLI0.8T23 PO; +FURO-151 MT; +GENT30CR TP; +LACT10SO7 PO; -LEVO-65 MT; +METO5TAB7 PO; -PANT40TA51 PO; -PREG50CA63 PO; +PREG50CA64 PO
[2023-12-03 14:31] LABS: CLARITY URINE CLEAR (CLEAR); COLOR URINE YELLOW (YELLOW); GLUCOSE URINE 2+ (NEGATIVE); KETONES URINE NEGATIVE (NEGATIVE); LEUKOCYTE ESTERASE URINE NEGATIVE (NEGATIVE); NITRITE URINE NEGATIVE (NEGATIVE); OCCULT BLOOD URINE 1+ (NEGATIVE); PROTEIN URINE 2+ (NEGATIVE); SPECIFIC GRAVITY URINE 1.015 (1.005-1.030); UROBILINOGEN URINE 0.2 E.U./dL (0.2-1.0)
[2023-12-03 14:43] LABS: RBC URINE 0-2 /hpf (0-2); SQUAMOUS EPITHELIAL CELL URINE 1+ /lpf (RARE/1+); WBC URINE 0-2 /hpf (0-2)
[2023-12-03 14:44] LABS: BACTERIA URINE NONE SEEN
[2023-12-03 15:36] LABS: BASOPHILS % 0.5 % (0.0-2.0); EOSINOPHILS % 1.5 % (0.0-5.0); HEMATOCRIT. 32.6 % (36.0-48.0); LYMPHOCYTES % 9.9 % (20.0-50.0); MEAN CORPUSCULAR HEMOGLOBIN 28.5 pg (28.0-32.0); MEAN CORPUSCULAR HGB CONC 33.8 g/dL (31.0-37.0); MEAN CORPUSCULAR VOLUME 84.1 fL (81.0-99.0); MEAN PLATELET VOLUME 7.7 fl (7.4-10.4); MONOCYTES % 6.6 % (2.0-8.0); NEUTROPHILS % 81.5 % (40.0-76.0); PLATELET 390 x1000/uL (130-400); RED BLOOD CELL COUNT 3.88 mill/uL (4.2-5.4); WHITE BLOOD COUNT 13.5 x1000/uL (4.5-11.0)
[2023-12-03 15:42] LABS: CHLORIDE 96 mEq/L (98-107); POTASSIUM 4.1 mEq/L (3.5-5.1); SODIUM 133 mEq/L (136-145)
[2023-12-03 15:43] LABS: CALCIUM 8.2 mg/dL (8.7-10.4); CARBON DIOXIDE 26 mEq/L (21-32)
[2023-12-03 15:48] LABS: GLUCOSE 339 mg/dL (70-105); UREA NITROGEN BLOOD 63 mg/dL (9-23)
[2023-12-03 15:49] LABS: ALANINE AMINOTRANSFERASE 11 IU/L (10-49)
[2023-12-03 15:50] LABS: ALBUMIN 3.9 g/dL (3.2-4.8); ASPARTATE AMINOTRANSFERASE 22 IU/L (<34); BILIRUBIN DIRECT 0.1 mg/dL (<=3.0); BILIRUBIN TOTAL 0.3 mg/dL (0.1-1.0); PROTEIN TOTAL 7.8 g/dL (6.0-8.3)
[2023-12-03 19:29] LABS: BASOPHILS % 0.5 % (0.0-2.0); HEMATOCRIT. 32.4 % (36.0-48.0); HEMOGLOBIN. 11.1 g/dL (12.0-16.0); LYMPHOCYTES % 10.9 % (20.0-50.0); MEAN CORPUSCULAR HEMOGLOBIN 28.8 pg (28.0-32.0); MEAN CORPUSCULAR HGB CONC 34.3 g/dL (31.0-37.0); MEAN CORPUSCULAR VOLUME 84.1 fL (81.0-99.0); MEAN PLATELET VOLUME 7.2 fl (7.4-10.4); MONOCYTES % 8.3 % (2.0-8.0); NEUTROPHILS % 78.3 % (40.0-76.0); PLATELET 353 x1000/uL (130-400); RED BLOOD CELL COUNT 3.85 mill/uL (4.2-5.4); RED CELL DISTRIBUTION WIDTH 15.1 % (11.6-14.6)
[2023-12-03 19:33] LABS: CHLORIDE 97 mEq/L (98-107); POTASSIUM 4.1 mEq/L (3.5-5.1); SODIUM 135 mEq/L (136-145)
[2023-12-03 19:34] LABS: CALCIUM 8.2 mg/dL (8.7-10.4); CARBON DIOXIDE 27 mEq/L (21-32)
[2023-12-03 19:39] LABS: CREATININE 3.9 mg/dL (0.6-1.0); GLUCOSE 280 mg/dL (70-105); UREA NITROGEN BLOOD 65 mg/dL (9-23)
[2023-12-03 19:40] LABS: TROPONIN I HIGH SENSITIVITY 24 ng/L (3.0-34)
[2023-12-03 21:22] LABS: TROPONIN I HIGH SENSITIVITY 23 ng/L (3.0-34)
[2023-12-04] MEDS ORDERED: DEXTROSE 50% WATER 50ML SYRINGE IV PRN ×2 (11:30→13:15)
[2023-12-04] MEDS ORDERED: BLOOD SUGAR DIAGNOSTIC STRIP TEST SCH (11:45)
[2023-12-04 12:00] VITALS: BP 174/81; PULSE 86; RESP 18; TEMP 97.1
[2023-12-04 12:30] VITALS: BP 174/81; PULSE 86; RESP 18; TEMP 97.7
[2023-12-04] MEDS: INSULIN LISPRO 100 UNITS/ML SUBCUT SCH (13:46)
[2023-12-04 16:00] VITALS: BP_SYST 186; BP_SYST 196; BP_DIAS 84; BP_DIAS 88; PULSE 83; PULSE 88; RESP 18
[2023-12-04] MEDS: HYDRALAZINE 20MG/ML VIAL IV PRN (17:50)
[2023-12-04] MEDS: BLOOD SUGAR DIAGNOSTIC STRIP TEST SCH (17:59)
[2023-12-04 20:00] VITALS: BP 157/60; PULSE 88; RESP 18; TEMP 98.2
[2023-12-04 20:25] VITALS: BP 165/88; PULSE 82; RESP 16; TEMP 97.8
[2023-12-04 20:30] VITALS: BP 161/88; PULSE 82; RESP 17; TEMP 97.8
[2023-12-04] MEDS: APIXABAN 2.5 MG TABLET PO SCH (21:31)
[2023-12-04] MEDS: CARVEDILOL 12.5MG TABLET PO SCH (21:31)
[2023-12-04] MEDS: INSULIN GLARGINE 100 UNITS/ML SUBCUT SCH (21:33)
[2023-12-04] MEDS: LOSARTAN 100 MG TABLET PO SCH (21:58)
[2023-12-04] MEDS ORDERED: INSULIN GLARGINE 100 UNITS/ML SUBCUT SCH (22:00)
[2023-12-05] VITALS: BP 115/83; PULSE 89; RESP 18; TEMP 98.4
[2023-12-05 04:00] VITALS: BP 93/55; PULSE 89; RESP 20; TEMP 97.8
[2023-12-05] MEDS: ACETAMINOPHEN 325MG TABLET PO PRN (05:03)
[2023-12-05] MEDS: ONDANSETRON HCL 4MG/2ML INJ IV PRN (05:03)
[2023-12-05 06:41] LABS: BODY FLUID RBC 4 /cu mm (0-2000); BODY FLUID WBC 1 /cu mm (0-200)
[2023-12-05 08:00] VITALS: BP_SYST 100; BP_SYST 151; BP_DIAS 52; BP_DIAS 84; BP_DIAS 87; PULSE 77; PULSE 84; RESP 18; TEMP 97.5; TEMP 98
[2023-12-05 12:00] VITALS: BP 119/53; PULSE 75; RESP 18; TEMP 97.6
[2023-12-05] MEDS ORDERED: INSU100I28 SQ (13:00)
[2023-12-05 13:05] VITALS: BP 118/55; PULSE 77; TEMP 97.6; O2SAT 100
[2023-12-05] MEDS ORDERED: INSULIN LISPRO 100 UNITS/ML SUBCUT SCH (17:10)
== END 2023-12-05 15:30 | disposition home or self-care (01) | DRG 73 ==
LOC: ER 13:15 → MICUSO 23:04 → 5WST 12-04 10:27 → 8WST 12-04 12:27
PROVIDERS: ADMIT Internal Medicine; ATTEND Internal Medicine
PROC: 5A1D70Z Performance of Urinary Filtration, Intermittent, Less than 6 Hours Per Day (ICD-10-PCS; principal; 2023-12-04)
PROC: 3E1M39Z Irrigation of Peritoneal Cavity using Dialysate, Percutaneous Approach (ICD-10-PCS; 2023-12-04)
DX: E11.43 Type 2 diabetes mellitus with diabetic autonomic (poly)neuropathy (principal); I50.23 Acute on chronic systolic (congestive) heart failure; N18.6 End stage renal disease; I13.2 Hypertensive heart and chronic kidney disease with heart failure and with stage 5 chronic kidney disease, or end stage renal disease; E87.1 Hypo-osmolality and hyponatremia; K31.84 Gastroparesis; E11.65 Type 2 diabetes mellitus with hyperglycemia; D64.9 Anemia, unspecified; E11.22 Type 2 diabetes mellitus with diabetic chronic kidney disease; E11.51 Type 2 diabetes mellitus with diabetic peripheral angiopathy without gangrene; E78.00 Pure hypercholesterolemia, unspecified; I48.0 Paroxysmal atrial fibrillation; Z79.01 Long term (current) use of anticoagulants; Z90.710 Acquired absence of both cervix and uterus; Z99.2 Dependence on renal dialysis; Z88.1 Allergy status to other antibiotic agents; Z79.4 Long term (current) use of insulin
CPT/HCPCS: 36415; 71045; 80048; 80076; 81003; 82962; 83036; 83605; 83880; 84484; 85025; 90935; 90945; 93005; 99285; J0360; J1815; J2405

== ENCOUNTER 2024-02-12 21:05 | Emergency (ER) | payer MEDICAID, MEDICARE ==
[~2024-02-12] VITALS: Ht 162.6 cm; Wt 73.0 kg
[2024-02-12 21:13] VITALS: BP 112/52; RESP 16; TEMP 98.2; O2SAT 98
[2024-02-12 21:15] VITALS: PULSE 98; O2SAT 99
[2024-02-12 21:59] LABS: BASOPHILS % 0.5 % (0.0-2.0); EOSINOPHILS % 2.1 % (0.0-5.0); HEMATOCRIT. 23.8 % (36.0-48.0); HEMOGLOBIN. 7.7 g/dL (12.0-16.0); LYMPHOCYTES % 8.2 % (20.0-50.0); MEAN CORPUSCULAR HEMOGLOBIN 27.6 pg (28.0-32.0); MEAN CORPUSCULAR HGB CONC 32.4 g/dL (31.0-37.0); MEAN CORPUSCULAR VOLUME 85.3 fL (81.0-99.0); MEAN PLATELET VOLUME 7.5 fl (7.4-10.4); NEUTROPHILS % 80.2 % (40.0-76.0); PLATELET 475 x1000/uL (130-400); RED BLOOD CELL COUNT 2.79 mill/uL (4.2-5.4); RED CELL DISTRIBUTION WIDTH 13.2 % (11.6-14.6); WHITE BLOOD COUNT 21.6 x1000/uL (4.5-11.0)
[2024-02-12 22:01] LABS: POTASSIUM 4.1 mEq/L (3.5-5.1)
[2024-02-12 22:07] LABS: CREATININE 4.5 mg/dL (0.6-1.0)
== END 2024-02-13 | disposition left against medical advice (07) ==
LOC: ER 21:05
DX: R50.9 Fever, unspecified (principal); Z53.21 Procedure and treatment not carried out due to patient leaving prior to being seen by health care provider
CPT/HCPCS: 36415; 80048; 83605; 85025